=== PATIENT | female | born 1955 | race Caucasian/White ===

== ENCOUNTER 2017-07-11 13:45 | Inpatient (IN) | payer OTHER ==
[~2017-07-11] VITALS: Ht 152.4 cm; Wt 77.1 kg
[~2017-07-11 13:45] MED LIST: ALBU3IS; ALBU90OI61; ALBU90OI61 INH; ALBUIS INH; AZIT250 PO; BACL10 PO; BENZ100A PO; BUSP10 PO; CITA20 PO; CLIN150 PO; Cardizem CD 24240 MG PO; DULO30 PO; Diltiazem ER240 MG PO; FURO20 PO; GABA100 PO; GUAI600T33 PO; LEVO750; LISI20 PO; LORA1; MELO7.5 PO; METO50ER PO; MONT10T PO; POTCHL20ER PO; PRED10; PROM25 PO; RANI150 PO; Symbicort 16010.2 GM IH; TIOT18; TIOT18 INH; TRAM50 PO
[2017-07-11 14:34] LABS: BASOPHILS ABSOLUTE AUTO 0.04 K/mm3 (0.00-0.23); BASOPHILS PERCENT AUTO 0 % (0-2); EOSINOPHILS PERCENT AUTO 0 % (0-6); Hematocrit 44.3 % (33.0-51.0); Hemoglobin 14.7 g/dL (11.5-16.0); IMMATURE GRAN ABSOLUTE AUTO 0.09 K/mm3 (0.00-0.10); IMMATURE GRAN PERCENT AUTO 1 % (0-1); LYMPHOCYTES ABSOLUTE AUTO 0.72 K/mm3 (0.84-5.20); LYMPHOCYTES PERCENT AUTO 5 % (21-46); MONOCYTES PERCENT AUTO 4 % (4-13); Mean Corpuscular HGB Conc 33.2 g/dL (31.5-36.5); Mean Corpuscular Volume 106 fL (80-100); Mean Platelet Volume 11.7 fL (9.1-12.4); NEUTROPHILS ABSOLUTE AUTO 13.38 K/mm3 (1.96-9.15); NEUTROPHILS PERCENT AUTO 90 % (41-73); Platelet Count 226 K/mm3 (150-400); RDW Coefficient Variation 12.8 % (11.7-14.2); RDW Standard Deviation 50.5 fL (35.1-46.3); White Blood Cell Count 14.83 K/mm3 (4.00-11.30)
[2017-07-11 14:35] LABS: PCO2 Arterial 42 mmHg (35-45); PO2 Arterial 93 mmHg (80-100); pH Blood Arterial 7.42 (7.35-7.45)
[2017-07-11 14:57] LABS: Alanine Aminotransfer (ALT/SGP 22 U/L (12-78); Albumin, Blood 3.7 g/dL (3.4-5.0); Albumin/Globulin Ratio 0.9 (0.8-1.8); Alk Phos 113 U/L (50-136); Anion Gap 10 mmol/L (6-16); Aspartate Aminotrans (AST/SGOT 22 U/L (12-37); Bilirubin, Total 0.7 mg/dL (0.1-1.0); Blood Urea Nitrogen 13 mg/dL (8-24); CO2, Blood 28 mmol/L (21-32); Calcium, Blood 9.1 mg/dL (8.5-10.1); Chloride, Blood 95 mmol/L (98-108); Creatinine, Blood 0.86 mg/dL (0.40-1.00); Globulin, Blood 4.2 g/dL (2.2-4.0); Glomerular Filtration Rate >60 (60-); Glucose, Blood 125 mg/dL (70-99); Magnesium, Blood 1.6 mg/dL (1.6-2.4); Sodium, Blood 133 mmol/L (136-145); Total Protein, Blood 7.9 g/dL (6.4-8.2); Troponin I <0.015 ng/mL (0.000-0.040)
[2017-07-11 16:09] LABS: Influenza A Negative (NEGATIVE); Influenza B Negative (NEGATIVE)
[2017-07-11] MEDS ORDERED: ALEN70 PO (17:06)
[2017-07-11] MEDS ORDERED: BUDE6HFA INH (17:06)
[2017-07-11] MEDS ORDERED: VITAMIN D35000 UNIT PO (17:07)
[2017-07-12 04:39] LABS: Albumin, Blood 2.8 g/dL (3.4-5.0); Albumin/Globulin Ratio 0.8 (0.8-1.8); Bilirubin, Total 0.3 mg/dL (0.1-1.0); Bun/Creatinine Ratio 17.4 (12.0-20.0); Calcium, Blood 8.2 mg/dL (8.5-10.1); Creatinine, Blood 1.32 mg/dL (0.40-1.00); Globulin, Blood 3.4 g/dL (2.2-4.0); Potassium, Blood 4.1 mmol/L (3.5-5.5); Total Protein, Blood 6.2 g/dL (6.4-8.2)
[2017-07-12 18:59] LABS: PCO2 Arterial 59.3 mmHg (35-45); PO2 Arterial 66.4 mmHg (80-100); pH Blood Arterial 7.32 (7.35-7.45)
[2017-07-12 20:44] LABS: PCO2 Arterial 89 mmHg (35-45); PO2 Arterial 412 mmHg (80-100); pH Blood Arterial 7.12 (7.35-7.45)
[2017-07-12 22:21] LABS: PCO2 Arterial 69.1 mmHg (35-45); PO2 Arterial 90.2 mmHg (80-100); pH Blood Arterial 7.26 (7.35-7.45)
[2017-07-13 00:14] LABS: Source, Urine Catheter
[2017-07-13 00:27] LABS: Bilirubin, Urine Neg (Neg); Blood, Urine Neg (Neg); Glucose Qualitative, Urine Neg (Neg); Ketones, Urine Neg (Neg); Leukocyte Esterase, Urine Neg (Neg); Nitrite, Urine Neg (Neg); Protein, Urine Neg (Neg); Urobilinogen, Urine NORM (Normal)
[2017-07-13 00:34] LABS: Appearance, Urine Clear (Clear); Color, Urine Yellow (P-Yellow)
[2017-07-13 04:09] LABS: BASOPHILS PERCENT AUTO 0 % (0-2); EOSINOPHILS PERCENT AUTO 0 % (0-6); Hematocrit 31.7 % (33.0-51.0); Hemoglobin 10.7 g/dL (11.5-16.0); IMMATURE GRAN ABSOLUTE AUTO 0.01 K/mm3 (0.00-0.10); IMMATURE GRAN PERCENT AUTO 0 % (0-1); LYMPHOCYTES ABSOLUTE AUTO 0.38 K/mm3 (0.84-5.20); LYMPHOCYTES PERCENT AUTO 7 % (21-46); MONOCYTES ABSOLUTE AUTO 0.23 K/mm3 (0.16-1.47); MONOCYTES PERCENT AUTO 4 % (4-13); Mean Corpuscular HGB 35.8 pg (26.0-34.0); Mean Corpuscular HGB Conc 33.8 g/dL (31.5-36.5); Mean Corpuscular Volume 106 fL (80-100); Mean Platelet Volume 11.6 fL (9.1-12.4); NEUTROPHILS ABSOLUTE AUTO 4.96 K/mm3 (1.96-9.15); NEUTROPHILS PERCENT AUTO 89 % (41-73); Platelet Count 167 K/mm3 (150-400); RDW Coefficient Variation 12.1 % (11.7-14.2); RDW Standard Deviation 47.4 fL (35.1-46.3); Red Blood Cell Count 2.99 M/mm3 (3.80-5.20); White Blood Cell Count 5.58 K/mm3 (4.00-11.30)
[2017-07-13 04:26] LABS: Bun/Creatinine Ratio 30.2 (12.0-20.0); Calcium, Blood 7.9 mg/dL (8.5-10.1); Creatinine, Blood 1.06 mg/dL (0.40-1.00); Potassium, Blood 5.2 mmol/L (3.5-5.5)
[2017-07-13 07:31] LABS: PCO2 Arterial 55.4 mmHg (35-45); PO2 Arterial 68.9 mmHg (80-100); pH Blood Arterial 7.35 (7.35-7.45)
[2017-07-13 16:08] LABS: Hematocrit 32.9 % (33.0-51.0)
[2017-07-14 04:18] LABS: BASOPHILS PERCENT AUTO 0 % (0-2); EOSINOPHILS PERCENT AUTO 0 % (0-6); Hematocrit 33.9 % (33.0-51.0); Hemoglobin 11.2 g/dL (11.5-16.0); IMMATURE GRAN ABSOLUTE AUTO 0.01 K/mm3 (0.00-0.10); IMMATURE GRAN PERCENT AUTO 0 % (0-1); LYMPHOCYTES ABSOLUTE AUTO 0.27 K/mm3 (0.84-5.20); LYMPHOCYTES PERCENT AUTO 6 % (21-46); MONOCYTES ABSOLUTE AUTO 0.22 K/mm3 (0.16-1.47); MONOCYTES PERCENT AUTO 5 % (4-13); Mean Corpuscular HGB 34.9 pg (26.0-34.0); Mean Corpuscular Volume 106 fL (80-100); Mean Platelet Volume 11.6 fL (9.1-12.4); NEUTROPHILS ABSOLUTE AUTO 3.74 K/mm3 (1.96-9.15); NEUTROPHILS PERCENT AUTO 88 % (41-73); Platelet Count 154 K/mm3 (150-400); RDW Coefficient Variation 11.9 % (11.7-14.2); RDW Standard Deviation 46.8 fL (35.1-46.3); Red Blood Cell Count 3.21 M/mm3 (3.80-5.20); White Blood Cell Count 4.24 K/mm3 (4.00-11.30)
[2017-07-14 04:34] LABS: Anion Gap 6 mmol/L (6-16); Blood Urea Nitrogen 29 mg/dL (8-24); Bun/Creatinine Ratio 36.5 (12.0-20.0); CO2, Blood 28 mmol/L (21-32); Calcium, Blood 8.3 mg/dL (8.5-10.1); Chloride, Blood 102 mmol/L (98-108); Creatinine, Blood 0.79 mg/dL (0.40-1.00); Glomerular Filtration Rate >60 (60-); Glucose, Blood 131 mg/dL (70-99); Magnesium, Blood 2.4 mg/dL (1.6-2.4); Phosphorus, Blood 2.9 mg/dL (2.5-4.9); Potassium, Blood 4.7 mmol/L (3.5-5.5); Sodium, Blood 136 mmol/L (136-145)
[2017-07-14 04:42] LABS: PCO2 Arterial 46.6 mmHg (35-45); PO2 Arterial 94.8 mmHg (80-100); pH Blood Arterial 7.37 (7.35-7.45)
[2017-07-15 03:53] LABS: BASOPHILS PERCENT AUTO 0 % (0-2); EOSINOPHILS PERCENT AUTO 0 % (0-6); Hematocrit 36.4 % (33.0-51.0); Hemoglobin 11.9 g/dL (11.5-16.0); IMMATURE GRAN ABSOLUTE AUTO 0.08 K/mm3 (0.00-0.10); IMMATURE GRAN PERCENT AUTO 1 % (0-1); LYMPHOCYTES PERCENT AUTO 6 % (21-46); MONOCYTES ABSOLUTE AUTO 0.37 K/mm3 (0.16-1.47); MONOCYTES PERCENT AUTO 6 % (4-13); Mean Corpuscular HGB 35.6 pg (26.0-34.0); Mean Corpuscular HGB Conc 32.7 g/dL (31.5-36.5); NEUTROPHILS ABSOLUTE AUTO 5.64 K/mm3 (1.96-9.15); NEUTROPHILS PERCENT AUTO 87 % (41-73); Platelet Count 182 K/mm3 (150-400); RDW Coefficient Variation 12.2 % (11.7-14.2); RDW Standard Deviation 49.3 fL (35.1-46.3); Red Blood Cell Count 3.34 M/mm3 (3.80-5.20); White Blood Cell Count 6.49 K/mm3 (4.00-11.30)
[2017-07-15 03:54] LABS: Mean Corpuscular Volume 109 fL (80-100)
[2017-07-15 04:11] LABS: Alanine Aminotransfer (ALT/SGP 25 U/L (12-78); Albumin, Blood 3.1 g/dL (3.4-5.0); Alk Phos 60 U/L (50-136); Anion Gap 5 mmol/L (6-16); Aspartate Aminotrans (AST/SGOT 26 U/L (12-37); Bilirubin, Total 0.3 mg/dL (0.1-1.0); Blood Urea Nitrogen 36 mg/dL (8-24); Bun/Creatinine Ratio 41.1 (12.0-20.0); CO2, Blood 29 mmol/L (21-32); Calcium, Blood 8.5 mg/dL (8.5-10.1); Chloride, Blood 107 mmol/L (98-108); Creatinine, Blood 0.88 mg/dL (0.40-1.00); Globulin, Blood 3.1 g/dL (2.2-4.0); Glomerular Filtration Rate >60 (60-); Glucose, Blood 102 mg/dL (70-99); Magnesium, Blood 2.5 mg/dL (1.6-2.4); Phosphorus, Blood 3.4 mg/dL (2.5-4.9); Potassium, Blood 5.1 mmol/L (3.5-5.5); Sodium, Blood 141 mmol/L (136-145); Total Protein, Blood 6.2 g/dL (6.4-8.2)
[2017-07-15 05:19] LABS: PCO2 Arterial 65.2 mmHg (35-45); PO2 Arterial 69.3 mmHg (80-100); pH Blood Arterial 7.27 (7.35-7.45)
[2017-07-15 08:12] LABS: PCO2 Arterial 103 mmHg (35-45); PO2 Arterial 77 mmHg (80-100)
[2017-07-16 03:58] LABS: BASOPHILS ABSOLUTE AUTO 0.02 K/mm3 (0.00-0.23); BASOPHILS PERCENT AUTO 0 % (0-2); EOSINOPHILS PERCENT AUTO 0 % (0-6); Hematocrit 34.5 % (33.0-51.0); Hemoglobin 11.4 g/dL (11.5-16.0); IMMATURE GRAN ABSOLUTE AUTO 0.16 K/mm3 (0.00-0.10); IMMATURE GRAN PERCENT AUTO 2 % (0-1); LYMPHOCYTES ABSOLUTE AUTO 0.38 K/mm3 (0.84-5.20); LYMPHOCYTES PERCENT AUTO 6 % (21-46); MONOCYTES ABSOLUTE AUTO 0.53 K/mm3 (0.16-1.47); MONOCYTES PERCENT AUTO 8 % (4-13); Mean Corpuscular HGB 34.7 pg (26.0-34.0); Mean Platelet Volume 11.1 fL (9.1-12.4); NEUTROPHILS ABSOLUTE AUTO 5.48 K/mm3 (1.96-9.15); NEUTROPHILS PERCENT AUTO 83 % (41-73); Platelet Count 195 K/mm3 (150-400); RDW Coefficient Variation 12.5 % (11.7-14.2); RDW Standard Deviation 48.4 fL (35.1-46.3); Red Blood Cell Count 3.29 M/mm3 (3.80-5.20); White Blood Cell Count 6.57 K/mm3 (4.00-11.30)
[2017-07-16 04:03] LABS: Mean Corpuscular Volume 105 fL (80-100)
[2017-07-16 04:12] LABS: PCO2 Arterial 37.1 mmHg (35-45); PO2 Arterial 64.8 mmHg (80-100); pH Blood Arterial 7.52 (7.35-7.45)
[2017-07-16 04:13] LABS: Anion Gap 5 mmol/L (6-16); Blood Urea Nitrogen 34 mg/dL (8-24); Bun/Creatinine Ratio 40.4 (12.0-20.0); CO2, Blood 30 mmol/L (21-32); Calcium, Blood 8.6 mg/dL (8.5-10.1); Chloride, Blood 106 mmol/L (98-108); Creatinine, Blood 0.84 mg/dL (0.40-1.00); Glomerular Filtration Rate >60 (60-); Glucose, Blood 153 mg/dL (70-99); Sodium, Blood 141 mmol/L (136-145)
[2017-07-17 04:37] LABS: Hematocrit 36.4 % (33.0-51.0); Hemoglobin 11.9 g/dL (11.5-16.0); Mean Corpuscular HGB Conc 32.7 g/dL (31.5-36.5); Mean Corpuscular Volume 107 fL (80-100); Mean Platelet Volume 11.4 fL (9.1-12.4); Platelet Count 198 K/mm3 (150-400); RDW Coefficient Variation 12.7 % (11.7-14.2); White Blood Cell Count 10.38 K/mm3 (4.00-11.30)
[2017-07-17 04:53] LABS: Anion Gap 4 mmol/L (6-16); Blood Urea Nitrogen 31 mg/dL (8-24); Bun/Creatinine Ratio 40.9 (12.0-20.0); CO2, Blood 30 mmol/L (21-32); Calcium, Blood 8.6 mg/dL (8.5-10.1); Chloride, Blood 107 mmol/L (98-108); Creatinine, Blood 0.76 mg/dL (0.40-1.00); Glomerular Filtration Rate >60 (60-); Glucose, Blood 162 mg/dL (70-99); Potassium, Blood 4.6 mmol/L (3.5-5.5); Sodium, Blood 141 mmol/L (136-145)
[2017-07-18 03:46] LABS: Hematocrit 34.4 % (33.0-51.0); Hemoglobin 11.3 g/dL (11.5-16.0); Mean Corpuscular HGB 35.1 pg (26.0-34.0); Mean Corpuscular HGB Conc 32.8 g/dL (31.5-36.5); Mean Corpuscular Volume 107 fL (80-100); Mean Platelet Volume 12.5 fL (9.1-12.4); NRBC ABSOLUTE 0.03 K/mm3 (0.00-0.02); NRBC Auto 0.3 /100 WBC (0.0-0.2); Platelet Count 163 K/mm3 (150-400); RDW Coefficient Variation 13.6 % (11.7-14.2); RDW Standard Deviation 51.1 fL (35.1-46.3); Red Blood Cell Count 3.22 M/mm3 (3.80-5.20); White Blood Cell Count 9.95 K/mm3 (4.00-11.30)
[2017-07-18 04:51] LABS: Anion Gap 6 mmol/L (6-16); Blood Urea Nitrogen 27 mg/dL (8-24); Bun/Creatinine Ratio 44.2 (12.0-20.0); CO2, Blood 30 mmol/L (21-32); Calcium, Blood 8.3 mg/dL (8.5-10.1); Chloride, Blood 105 mmol/L (98-108); Creatinine, Blood 0.61 mg/dL (0.40-1.00); Glomerular Filtration Rate >60 (60-); Glucose, Blood 165 mg/dL (70-99); Potassium, Blood 4.5 mmol/L (3.5-5.5); Sodium, Blood 141 mmol/L (136-145)
[2017-07-18 05:03] LABS: BAND PERCENT MAN 1 % (0-8); BASOPHILS PERCENT MAN 0 % (0-2); EOSINOPHILS PERCENT MAN 0 % (0-6); LYMPHOCYTES ABSOLUTE MAN 0.39 K/mm3 (0.84-5.20); LYMPHOCYTES PERCENT MAN 4 % (21-46); METAMYELOCYTE ABSOLUTE MAN 0.19 K/mm3 (0.00-0.00); METAMYELOCYTE PERCENT MAN 2 % (0-0); MONOCYTES ABSOLUTE MAN 0.49 K/mm3 (0.16-1.47); MONOCYTES PERCENT MAN 5 % (4-13); MYELOCYTE ABSOLUTE MAN 0.09 K/mm3 (0.00-0.00); MYELOCYTE PERCENT MAN 1 % (0-0); NEUTROPHILS ABSOLUTE MAN 8.75 K/mm3 (1.96-9.15); SEG NEUTROPHILS PERCENT MAN 87 % (41-73); TOTAL CELLS COUNTED 100
[2017-07-18 05:41] LABS: PCO2 Arterial 46.9 mmHg (35-45); PO2 Arterial 50.3 mmHg (80-100); pH Blood Arterial 7.44 (7.35-7.45)
[2017-07-19 04:56] LABS: BASOPHILS ABSOLUTE AUTO 0.02 K/mm3 (0.00-0.23); BASOPHILS PERCENT AUTO 0 % (0-2); EOSINOPHILS PERCENT AUTO 0 % (0-6); Hematocrit 36.1 % (33.0-51.0); Hemoglobin 12.1 g/dL (11.5-16.0); IMMATURE GRAN ABSOLUTE AUTO 0.75 K/mm3 (0.00-0.10); IMMATURE GRAN PERCENT AUTO 7 % (0-1); LYMPHOCYTES ABSOLUTE AUTO 0.65 K/mm3 (0.84-5.20); LYMPHOCYTES PERCENT AUTO 6 % (21-46); MONOCYTES ABSOLUTE AUTO 0.75 K/mm3 (0.16-1.47); MONOCYTES PERCENT AUTO 7 % (4-13); Mean Corpuscular HGB 34.9 pg (26.0-34.0); Mean Corpuscular HGB Conc 33.5 g/dL (31.5-36.5); Mean Platelet Volume 11.4 fL (9.1-12.4); NEUTROPHILS ABSOLUTE AUTO 8.99 K/mm3 (1.96-9.15); NEUTROPHILS PERCENT AUTO 81 % (41-73); Platelet Count 152 K/mm3 (150-400); RDW Coefficient Variation 12.6 % (11.7-14.2); RDW Standard Deviation 48.3 fL (35.1-46.3); Red Blood Cell Count 3.47 M/mm3 (3.80-5.20); White Blood Cell Count 11.16 K/mm3 (4.00-11.30)
[2017-07-19 04:57] LABS: Mean Corpuscular Volume 104 fL (80-100)
[2017-07-19 05:12] LABS: Anion Gap 7 mmol/L (6-16); BAND PERCENT MAN 1 % (0-8); BASOPHILS PERCENT MAN 0 % (0-2); Blood Urea Nitrogen 24 mg/dL (8-24); Bun/Creatinine Ratio 40.2 (12.0-20.0); CO2, Blood 30 mmol/L (21-32); Calcium, Blood 7.9 mg/dL (8.5-10.1); Chloride, Blood 102 mmol/L (98-108); EOSINOPHILS PERCENT MAN 0 % (0-6); Glomerular Filtration Rate >60 (60-); Glucose, Blood 162 mg/dL (70-99); LYMPHOCYTES ABSOLUTE MAN 0.78 K/mm3 (0.84-5.20); LYMPHOCYTES PERCENT MAN 7 % (21-46); METAMYELOCYTE ABSOLUTE MAN 0.44 K/mm3 (0.00-0.00); METAMYELOCYTE PERCENT MAN 4 % (0-0); MONOCYTES ABSOLUTE MAN 0.66 K/mm3 (0.16-1.47); MONOCYTES PERCENT MAN 6 % (4-13); MYELOCYTE ABSOLUTE MAN 0.11 K/mm3 (0.00-0.00); MYELOCYTE PERCENT MAN 1 % (0-0); NEUTROPHILS ABSOLUTE MAN 9.15 K/mm3 (1.96-9.15); Potassium, Blood 4.2 mmol/L (3.5-5.5); SEG NEUTROPHILS PERCENT MAN 81 % (41-73); Sodium, Blood 139 mmol/L (136-145); TOTAL CELLS COUNTED 100
[2017-07-19 05:38] LABS: PCO2 Arterial 43.9 mmHg (35-45); PO2 Arterial 59.3 mmHg (80-100)
[2017-07-20 04:34] LABS: BASOPHILS ABSOLUTE AUTO 0.02 K/mm3 (0.00-0.23); BASOPHILS PERCENT AUTO 0 % (0-2); EOSINOPHILS PERCENT AUTO 0 % (0-6); Hematocrit 33.5 % (33.0-51.0); Hemoglobin 11.3 g/dL (11.5-16.0); IMMATURE GRAN ABSOLUTE AUTO 0.28 K/mm3 (0.00-0.10); IMMATURE GRAN PERCENT AUTO 3 % (0-1); LYMPHOCYTES ABSOLUTE AUTO 0.77 K/mm3 (0.84-5.20); LYMPHOCYTES PERCENT AUTO 7 % (21-46); MONOCYTES ABSOLUTE AUTO 0.61 K/mm3 (0.16-1.47); MONOCYTES PERCENT AUTO 6 % (4-13); Mean Corpuscular HGB 35.1 pg (26.0-34.0); Mean Corpuscular HGB Conc 33.7 g/dL (31.5-36.5); Mean Corpuscular Volume 104 fL (80-100); Mean Platelet Volume 11.7 fL (9.1-12.4); NEUTROPHILS ABSOLUTE AUTO 9.51 K/mm3 (1.96-9.15); NEUTROPHILS PERCENT AUTO 85 % (41-73); Platelet Count 149 K/mm3 (150-400); RDW Coefficient Variation 12.4 % (11.7-14.2); RDW Standard Deviation 47.7 fL (35.1-46.3); Red Blood Cell Count 3.22 M/mm3 (3.80-5.20); White Blood Cell Count 11.19 K/mm3 (4.00-11.30)
[2017-07-20 04:50] LABS: Anion Gap 3 mmol/L (6-16); Blood Urea Nitrogen 20 mg/dL (8-24); Bun/Creatinine Ratio 30.8 (12.0-20.0); CO2, Blood 37 mmol/L (21-32); Chloride, Blood 99 mmol/L (98-108); Creatinine, Blood 0.65 mg/dL (0.40-1.00); Glomerular Filtration Rate >60 (60-); Glucose, Blood 109 mg/dL (70-99); Magnesium, Blood 2.6 mg/dL (1.6-2.4); Phosphorus, Blood 3.7 mg/dL (2.5-4.9); Potassium, Blood 4.6 mmol/L (3.5-5.5); Sodium, Blood 139 mmol/L (136-145)
[2017-07-20 05:27] LABS: PO2 Arterial 117 mmHg (80-100); pH Blood Arterial 7.46 (7.35-7.45)
[2017-07-21 03:24] LABS: PCO2 Arterial 53.4 mmHg (35-45); PO2 Arterial 82.9 mmHg (80-100); pH Blood Arterial 7.46 (7.35-7.45)
[2017-07-21 04:10] LABS: BASOPHILS ABSOLUTE AUTO 0.02 K/mm3 (0.00-0.23); BASOPHILS PERCENT AUTO 0 % (0-2); EOSINOPHILS PERCENT AUTO 0 % (0-6); Hematocrit 35.6 % (33.0-51.0); Hemoglobin 11.7 g/dL (11.5-16.0); IMMATURE GRAN PERCENT AUTO 1 % (0-1); LYMPHOCYTES ABSOLUTE AUTO 0.91 K/mm3 (0.84-5.20); LYMPHOCYTES PERCENT AUTO 6 % (21-46); MONOCYTES ABSOLUTE AUTO 0.66 K/mm3 (0.16-1.47); MONOCYTES PERCENT AUTO 5 % (4-13); Mean Corpuscular HGB 34.2 pg (26.0-34.0); Mean Corpuscular HGB Conc 32.9 g/dL (31.5-36.5); Mean Corpuscular Volume 104 fL (80-100); Mean Platelet Volume 11.9 fL (9.1-12.4); NEUTROPHILS ABSOLUTE AUTO 12.85 K/mm3 (1.96-9.15); NEUTROPHILS PERCENT AUTO 88 % (41-73); Platelet Count 161 K/mm3 (150-400); RDW Coefficient Variation 12.3 % (11.7-14.2); RDW Standard Deviation 46.5 fL (35.1-46.3); Red Blood Cell Count 3.42 M/mm3 (3.80-5.20); White Blood Cell Count 14.64 K/mm3 (4.00-11.30)
[2017-07-21 04:29] LABS: Anion Gap 6 mmol/L (6-16); Blood Urea Nitrogen 20 mg/dL (8-24); Bun/Creatinine Ratio 30.9 (12.0-20.0); CO2, Blood 37 mmol/L (21-32); Calcium, Blood 8.2 mg/dL (8.5-10.1); Chloride, Blood 96 mmol/L (98-108); Creatinine, Blood 0.65 mg/dL (0.40-1.00); Glomerular Filtration Rate >60 (60-); Glucose, Blood 112 mg/dL (70-99); Potassium, Blood 3.8 mmol/L (3.5-5.5); Sodium, Blood 139 mmol/L (136-145)
[2017-07-22 04:00] LABS: Hematocrit 35.1 % (33.0-51.0); Mean Corpuscular HGB 35.5 pg (26.0-34.0); Mean Corpuscular HGB Conc 34.2 g/dL (31.5-36.5); Mean Corpuscular Volume 104 fL (80-100); Mean Platelet Volume 11.8 fL (9.1-12.4); Platelet Count 180 K/mm3 (150-400); RDW Coefficient Variation 12.4 % (11.7-14.2); RDW Standard Deviation 47.2 fL (35.1-46.3); Red Blood Cell Count 3.38 M/mm3 (3.80-5.20); White Blood Cell Count 16.77 K/mm3 (4.00-11.30)
[2017-07-22 04:16] LABS: Anion Gap 4 mmol/L (6-16); Blood Urea Nitrogen 20 mg/dL (8-24); Bun/Creatinine Ratio 28.1 (12.0-20.0); CO2, Blood 35 mmol/L (21-32); Calcium, Blood 8.5 mg/dL (8.5-10.1); Chloride, Blood 98 mmol/L (98-108); Creatinine, Blood 0.71 mg/dL (0.40-1.00); Glomerular Filtration Rate >60 (60-); Glucose, Blood 119 mg/dL (70-99); Potassium, Blood 4.7 mmol/L (3.5-5.5); Sodium, Blood 137 mmol/L (136-145)
[2017-07-23] MEDS ORDERED: DULO60 PO (12:52)
[2017-07-23] MEDS ORDERED: ERGO400 PO (12:53)
[2017-07-23] MEDS ORDERED: CIPR500 PO (12:55)
[2017-07-23] MEDS ORDERED: DOCU100 PO (12:55)
[2017-07-23] MEDS ORDERED: ALBU3IS INH (12:56)
[2017-07-23] MEDS ORDERED: ALBU2.5V5 NEB (12:57)
[2017-07-23] MEDS ORDERED: PRED10 PO (12:57)
[2017-07-23] MEDS ORDERED: AZIT500 PO (12:58)
== END 2017-07-23 14:15 | disposition home health service (06) | DRG 871 ==
LOC: ER 13:45 → ICUE 13:46 → PCU 13:46 → ICUE 17:15 → PCU 17:23 → ICUE 07-12 19:23 → PCU 07-20 19:03 → MEDS 07-22 17:26 → ENPENDDIS 07-23 10:42 → MEDS 07-23 14:15
PROVIDERS: Emergency Medicine; Internal Medicine; Internal Medicine Critical Care Medicine; Internal Medicine Pulmonary Disease
PROC: 5A09457 Assistance with Respiratory Ventilation, 24-96 Consecutive Hours, Continuous Positive Airway Pressure (ICD-10-PCS; 2017-07-11)
PROC: 0BH17EZ Insertion of Endotracheal Airway into Trachea, Via Natural or Artificial Opening (ICD-10-PCS; principal; 2017-07-15)
PROC: 5A1945Z Respiratory Ventilation, 24-96 Consecutive Hours (ICD-10-PCS; 2017-07-15)
DX: A41.81 Sepsis due to Enterococcus (principal); J96.21 Acute and chronic respiratory failure with hypoxia; J96.22 Acute and chronic respiratory failure with hypercapnia; G93.41 Metabolic encephalopathy; J15.6 Pneumonia due to other Gram-negative bacteria; J15.8 Pneumonia due to other specified bacteria; N17.9 Acute kidney failure, unspecified; E87.1 Hypo-osmolality and hyponatremia; J44.0 Chronic obstructive pulmonary disease with (acute) lower respiratory infection; J44.1 Chronic obstructive pulmonary disease with (acute) exacerbation; R53.81 Other malaise; F41.8 Other specified anxiety disorders; I10 Essential (primary) hypertension; M54.9 Dorsalgia, unspecified; G62.9 Polyneuropathy, unspecified; R65.20 Severe sepsis without septic shock; F17.210 Nicotine dependence, cigarettes, uncomplicated; B37.9 Candidiasis, unspecified; T50.905A Adverse effect of unspecified drugs, medicaments and biological substances, initial encounter
CPT/HCPCS: 31500; 31720; 36415; 36600; 51702; 71045; 80048; 80053; 81003; 82550; 82803; 83605; 83735; 83880; 84100; 84145; 84484; 85014; 85018; 85025; 85027; 87040; 87070; 87077; 87186; 87205; 87804; 93005; 93010; 94002; 94003; 94640; 94644; 94660; 94760; 94762; 96365; 96366; 96375; 97110; 97116; 97162; 97166; 97530; 97535; 99285; C1751; C9113; G8978; G8979; G8987; G8988; J0330; J0360; J0456; J0696; J1650; J2060; J2405; J2930; J3010; J7030; J7050; J7120

== ENCOUNTER 2019-05-22 03:57 | Inpatient (IN) | payer OTHER ==
[~2019-05-22] VITALS: Ht 154.9 cm; Wt 67.1 kg
[~2019-05-22 03:57] MED LIST changes: +ALBU2.5V5 NEB; +ALBU3IS INH; +ALEN70 PO; +AZIT500 PO; +Albuterol2.5 MG/0.5 INH; +BUDE6HFA INH; +BUDESONIDE-FO10.2 G1 INH; +Budesonide0.5 MG/2 M INH; +CIPR500 PO; +DOCU100 PO; +DULO60 PO; +Duoneb 2.5-0.5 M3 ML INH; +Duoneb 2.5-0.5 M3 ML NEB; +ERGO400 PO; +FLUTICASONE-SA1 EAC4 INH; +METO100ER PO; +Micro-K10 MEQ PO; +OMEPRAZOLE MAGN20 MG PO; +PRED10 PO; +PROAIR DIGIHAL90 MCG; +Prednisone10 MG PO; +QUET300 PO; +ROBITUSSIN COU237 ML PO; +THERA-D2000 UNIT PO; +VITAMIN D35000 UNIT PO
[2019-05-22 04:25] LABS: BASOPHILS ABSOLUTE AUTO 0.04 K/mm3 (0.00-0.23); BASOPHILS PERCENT AUTO 0 % (0-2); EOSINOPHILS ABSOLUTE AUTO 0.01 K/mm3 (0.00-0.68); EOSINOPHILS PERCENT AUTO 0 % (0-6); Hematocrit 35.2 % (33.0-51.0); Hemoglobin 12.1 g/dL (11.5-16.0); IMMATURE GRAN ABSOLUTE AUTO 0.13 K/mm3 (0.00-0.10); IMMATURE GRAN PERCENT AUTO 1 % (0-1); LYMPHOCYTES PERCENT AUTO 5 % (21-46); MONOCYTES ABSOLUTE AUTO 1.16 K/mm3 (0.16-1.47); MONOCYTES PERCENT AUTO 7 % (4-13); Mean Corpuscular HGB 35.6 pg (26.0-34.0); Mean Corpuscular HGB Conc 34.4 g/dL (31.5-36.5); Mean Corpuscular Volume 104 fL (80-100); Mean Platelet Volume 11.1 fL (9.1-12.4); NEUTROPHILS ABSOLUTE AUTO 15.19 K/mm3 (1.96-9.15); NEUTROPHILS PERCENT AUTO 88 % (41-73); Platelet Count 312 K/mm3 (150-400); RDW Standard Deviation 49.6 fL (35.1-46.3); White Blood Cell Count 17.33 K/mm3 (4.00-11.30)
[2019-05-22 04:26] LABS: PCO2 Arterial 33.2 mmHg (35-45); PO2 Arterial 50.9 mmHg (80-100); pH Blood Arterial 7.51 (7.35-7.45)
[2019-05-22 04:45] LABS: Alanine Aminotransfer (ALT/SGP 14 U/L (12-78); Albumin, Blood 2.4 g/dL (3.4-5.0); Albumin/Globulin Ratio 0.6 (0.8-1.8); Alk Phos 134 U/L (50-136); Anion Gap 9 mmol/L (6-16); Aspartate Aminotrans (AST/SGOT 25 U/L (12-37); Blood Urea Nitrogen 13 mg/dL (8-24); CO2, Blood 25 mmol/L (21-32); Calcium, Blood 8.7 mg/dL (8.5-10.1); Chloride, Blood 100 mmol/L (98-108); Creatinine, Blood 0.76 mg/dL (0.40-1.00); Globulin, Blood 4.3 g/dL (2.2-4.0); Glomerular Filtration Rate >60 (60-); Glucose, Blood 104 mg/dL (70-99); Potassium, Blood 4.6 mmol/L (3.5-5.5); Sodium, Blood 134 mmol/L (136-145); Total Protein, Blood 6.7 g/dL (6.4-8.2); Troponin I <0.015 ng/mL (0.000-0.040)
[2019-05-22 07:51] LABS: Adenovirus Not Detected (NOT DETECT); Bordetella pertussis Not Detected (NOT DETECT); Chlamydophila pneumoniae Not Detected (NOT DETECT); Coronavirus 229E Not Detected (NOT DETECT); Coronavirus HKU1 Detected (NOT DETECT); Coronavirus NL63 Not Detected (NOT DETECT); Coronavirus OC43 Not Detected (NOT DETECT); Human Metapneumovirus Not Detected (NOT DETECT); Human Rhinovirus/Enterovirus Not Detected (NOT DETECT); Influenza A/2009-H1 Not Detected (NOT DETECT); Influenza A/H1 Not Detected (NOT DETECT); Influenza A/H3 Not Detected (NOT DETECT); Influenza B Not Detected (NOT DETECT); Mycoplasma pneumoniae Not Detected (NOT DETECT); Parainfluenza Virus 1 Not Detected (NOT DETECT); Parainfluenza Virus 2 Not Detected (NOT DETECT); Parainfluenza Virus 3 Not Detected (NOT DETECT); Parainfluenza Virus 4 Not Detected (NOT DETECT); Respiratory Syncytial Virus Not Detected (NOT DETECT)
[2019-05-22 10:56] LABS: Test Name COVID 19
[2019-05-22] MEDS ORDERED: FLUTICASONE-SA1 EAC4 INH (11:42)
[2019-05-22] MEDS ORDERED: MONT10T PO (11:43)
--- NOTE | 2019-05-22 15:40 | NUR ---
ASSUMED PATIENT CARE. PATIENT RESTING COMFORTABLY IN BED, NO SIGNS OF ACUTE RESPIRATORY DISTRESS. EQUAL BILATERAL CHEST RISE WTIH BREATH, WCTM.
--- NOTE | 2019-05-22 18:24 | NUR ---
PATIENT ARRIVED FROM ED THIS AFTERNOON. NO ACUTE EVENTS THIS HALF OF SHIFT. PATIENT ON 3 L NASAL CANNULA WITH O2 SATS IN THE UPPER 90S. RESPIRATORY PANEL WAS COLLECTED TODAY. PROCALCITONIN WAS ELEVATED THIS SHIFT. IV ABX ORDERED TO TREAT FOR SUSPECTED PNA. PATIENT RECEIVED DUONEB TREATMENTS FROM RT THIS SHIFT. CURRENTLY RECIEVING IV FLUIDS.
[2019-05-23 05:31] LABS: U Amphetamine Screen Not Detected
[2019-05-23 05:32] LABS: U Barbituate Screen Not Detected; U Benzodiazapine Screen Not Detected; U Buprenorphine Screen Not Detected; U Cannabinoids Screen Not Detected; U Cocaine Screen Not Detected; U Methadone Screen Not Detected; U Methamphetamine Screen Not Detected; U Opiates Screen Not Detected; U Oxycodone Screen Not Detected; U Phencyclidine Screen Not Detected; U Propoxyphene Screen Not Detected
[2019-05-23 05:33] LABS: BASOPHILS ABSOLUTE AUTO 0.01 K/mm3 (0.00-0.23); BASOPHILS PERCENT AUTO 0 % (0-2); EOSINOPHILS PERCENT AUTO 0 % (0-6); Hematocrit 25.2 % (33.0-51.0); Hemoglobin 8.5 g/dL (11.5-16.0); IMMATURE GRAN ABSOLUTE AUTO 0.05 K/mm3 (0.00-0.10); IMMATURE GRAN PERCENT AUTO 1 % (0-1); LYMPHOCYTES ABSOLUTE AUTO 0.63 K/mm3 (0.84-5.20); LYMPHOCYTES PERCENT AUTO 7 % (21-46); MONOCYTES ABSOLUTE AUTO 0.48 K/mm3 (0.16-1.47); MONOCYTES PERCENT AUTO 6 % (4-13); Mean Corpuscular HGB 35.9 pg (26.0-34.0); Mean Corpuscular HGB Conc 33.7 g/dL (31.5-36.5); Mean Corpuscular Volume 106 fL (80-100); Mean Platelet Volume 11.2 fL (9.1-12.4); NEUTROPHILS ABSOLUTE AUTO 7.48 K/mm3 (1.96-9.15); NEUTROPHILS PERCENT AUTO 87 % (41-73); Platelet Count 247 K/mm3 (150-400); RDW Coefficient Variation 12.9 % (11.7-14.2); RDW Standard Deviation 50.3 fL (35.1-46.3); Red Blood Cell Count 2.37 M/mm3 (3.80-5.20); White Blood Cell Count 8.65 K/mm3 (4.00-11.30)
--- NOTE | 2019-05-23 05:41 | NUR ---
SHIFT SUMMARY: PATIENT ALERT AND ACTIVE THIS SHIFT, C/O DIFFICULTY BREATHING X2 THIS SHIFT; O2 >90%, BREATHING TREATMENT REQUESTED. PATIENT C/O NO URINATION ALL DAY, BLADDER SCAN REVEALED ONLY APPROX 158ML IN BLADDER, AT END OF SHIFT PATIENT WAS ABLE TO URINATE >400ML. NO OTHER ISSUES NOTED, MONITORING PATIENT CLOSELY
[2019-05-23 05:55] LABS: Alanine Aminotransfer (ALT/SGP 14 U/L (12-78); Albumin/Globulin Ratio 0.6 (0.8-1.8); Alk Phos 100 U/L (50-136); Anion Gap 6 mmol/L (6-16); Aspartate Aminotrans (AST/SGOT 13 U/L (12-37); Bilirubin, Total 0.2 mg/dL (0.1-1.0); Blood Urea Nitrogen 20 mg/dL (8-24); Bun/Creatinine Ratio 25.6 (12.0-20.0); CO2, Blood 24 mmol/L (21-32); Calcium, Blood 7.9 mg/dL (8.5-10.1); Chloride, Blood 106 mmol/L (98-108); Creatinine, Blood 0.78 mg/dL (0.40-1.00); Globulin, Blood 3.6 g/dL (2.2-4.0); Glomerular Filtration Rate >60 (60-); Glucose, Blood 117 mg/dL (70-99); Sodium, Blood 136 mmol/L (136-145); Total Protein, Blood 5.6 g/dL (6.4-8.2)
--- NOTE | 2019-05-23 07:15 | NUR ---
ASSUMED PATIENT CARE. PATIENT RESTING COMFORTABLY IN BED, NO SIGNS OF ACUTE DISTRESS. WCTM.
--- NOTE | 2019-05-23 10:24 | NUR ---
HELPED PATIENT TO BEDSIDE COMODE AND BACK TO BED. INCREASED WORK OF BREATHING NOTED. PATIENT COMPLAINS OF CHEST PRESSURE "LIKE SOMEONE IS SITTING ON MY CHEST." O2 SATURATION IN MID-90S. NOTIFIED CHARGE NURSE. OLGA.
--- NOTE | 2019-05-23 10:58 | NUR ---
Spiritual care visit conducted. Patient is lying in bed and alert. Patient tells me about her medical issues, her family and her niurka. She states that her family is very supportive but most live out of town. Patient tells me that her prayers are what get her through the challenges of life and gives her a sense of peace even in light of her current health conditions. I listen empathically, normalize patient's experience, reinforce helpful attitudes and practices and provide companionship and prayer. Patient responds well. I will continues to remain available to patient and family.
--- NOTE | 2019-05-23 11:00 | NUR ---
DR. STOKES NOTIFIED OF PATIENT'S CHEST PAIN/PRESSURE. EKG DONE, DR. STOKES EXAMINED AND ORDERED GI COCKTAIL AND NITRO.
--- NOTE | 2019-05-23 12:54 | NUR ---
AFTER ADMIN OF GI COCKTAIL PATIENT'S CHEST PRESSURE AND PAIN HAS GONE FROM 9/10 PAIN TO 8/10 PAIN. HOWEVER PAIN HAS SPREAD FROM UPPER GI, TO MID-CHEST, AND TO BACK. NITRO GIVEN. WCTM.
--- NOTE | 2019-05-23 13:06 | NUR ---
1 NITRO ADMININSTERED, PATIENT ENDORSES RELIEF OF CHEST PRESSURE AND PAIN DECREASED FROM 8/10 TO 6/10.
--- NOTE | 2019-05-23 15:53 | NUR ---
Echocardiogram completed.
--- NOTE | 2019-05-23 18:56 | NUR ---
PATIENT MAINTAINED O2 IN THE MID-90S WITH 1.5-2.5 L NASAL CANNULA THIS SHIFT. MIDDAY PATIENT BEGAN TO COMPLAIN OF CHEST PAIN 9/10 AND CHEST PRESSURE, AND NAUSEA. DR. STOKES NOTIFIED, EKG CONDUCTED, GI COCKTAIL AND NITROGYLCERIN ORDERED AND GIVEN. PATIENT X1 NITRO ADMINISTERED, PATIENT ENDORSES RELIEF OF CHEST PRESSURE AND DECREASE IN PAIN FROM 9/10 TO 6/10. PATIENT COMPLAINED A SECOND TIME IN AFTERNOON OF CHEST PAIN/PRESSURE, AGAIN ENDORSED RELIEF. BOTH TIMES PATIENT COMPLAINED OF HEADACHE AFTER NITRO, TYLENOL WAS EFFECTIVE.
--- NOTE | 2019-05-23 19:11 | NUR ---
RELINQUISHED PATIENT CARE.
--- NOTE | 2019-05-24 04:00 | NUR ---
SHIFT SMMARY: PATIENT STATES SHE STILL CHEST PAIN BUT VERY LITTLE COMPARED TO DAYSHIFT, STATES IT IS WORSE WITH BREATHING. VSS, PATIENT BETTING UP TO BSC WITH SBA, NO OTHER ISSUES NOTED. CALL LIGHT WITHIN REACH, BED LOW AND LOCKED
--- NOTE | 2019-05-24 07:25 | NUR ---
ASSUMED PATIENT CARE. PATIENT RESTING COMFORTABLY IN BED, NO SIGNS OF ACUTE DISTRESS. WCTM.
--- NOTE | 2019-05-24 15:14 | NUR ---
Spiritual care visit conducted. Patient immediately tells me that she is relieved that she is negative for covid-19. Patient talks about her personal struggles and about her family unit complications. Patient has fears about what is happening with her health and although she is thankful for what is ruled out she is concerned about what she doesn't know. I listen empathically and provide anxiety containment, pastoral certified lactation counselor and prayer. Patient responds well and shows signs of reduced stress. I will continue to remain available to patient and family.
--- NOTE | 2019-05-24 19:40 | NUR ---
RELINQUISHED PATIENT CARE.
--- NOTE | 2019-05-24 19:54 | NUR ---
NO ACUTE EVENTS THIS SHIFT. PATIENT REMAINED PLEASANT BUT FORGETFUL AT TIMES. PATIENT MAINTAINED O2 SATS OF MID TO UPPER 90S ON 0-3 L NASAL CANNULA. PATIENT REMAINED IN SINUS TACH THROUGH THIS SHIFT. PATIENT WAS ABLE TO USE BEDSIDE COMODE WITH STANDBY ASSIST, PATIENT EXHIBITED INCREASED WORK OF BREATHING AND WEAKNESS EACH TIME AFTER GETTING BACK TO BED. PLAN IS FOR PATIENT TO CONTINUE TO RECEIVE DUONEB TREATMENTS, SOLUMEDROL, AND IV ABX.
[2019-05-25 03:44] LABS: BASOPHILS ABSOLUTE AUTO 0.01 K/mm3 (0.00-0.23); BASOPHILS PERCENT AUTO 0 % (0-2); EOSINOPHILS PERCENT AUTO 0 % (0-6); Hematocrit 23.6 % (33.0-51.0); Hemoglobin 7.7 g/dL (11.5-16.0); IMMATURE GRAN ABSOLUTE AUTO 0.11 K/mm3 (0.00-0.10); IMMATURE GRAN PERCENT AUTO 2 % (0-1); LYMPHOCYTES ABSOLUTE AUTO 0.54 K/mm3 (0.84-5.20); LYMPHOCYTES PERCENT AUTO 9 % (21-46); MONOCYTES ABSOLUTE AUTO 0.27 K/mm3 (0.16-1.47); MONOCYTES PERCENT AUTO 4 % (4-13); Mean Corpuscular HGB 34.5 pg (26.0-34.0); Mean Corpuscular HGB Conc 32.6 g/dL (31.5-36.5); Mean Corpuscular Volume 106 fL (80-100); Mean Platelet Volume 10.6 fL (9.1-12.4); NEUTROPHILS PERCENT AUTO 85 % (41-73); Platelet Count 279 K/mm3 (150-400); RDW Coefficient Variation 12.6 % (11.7-14.2); RDW Standard Deviation 48.8 fL (35.1-46.3); Red Blood Cell Count 2.23 M/mm3 (3.80-5.20); White Blood Cell Count 6.33 K/mm3 (4.00-11.30)
[2019-05-25 04:01] LABS: Anion Gap 5 mmol/L (6-16); Blood Urea Nitrogen 23 mg/dL (8-24); Bun/Creatinine Ratio 25.8 (12.0-20.0); CO2, Blood 25 mmol/L (21-32); Calcium, Blood 8.5 mg/dL (8.5-10.1); Chloride, Blood 103 mmol/L (98-108); Creatinine, Blood 0.89 mg/dL (0.40-1.00); Glomerular Filtration Rate >60 (60-); Glucose, Blood 124 mg/dL (70-99); Potassium, Blood 4.7 mmol/L (3.5-5.5); Sodium, Blood 133 mmol/L (136-145)
--- NOTE | 2019-05-25 06:19 | NUR ---
SHIFT SUMMARY PT ALERT AND ORIENTED TO SELF; O2 SATS >93 ON 2L NC; VSS; DENIES CHEST PAIN; PT SLEPT WELL IN BETWEEN INTERVENTIONS; SBA TO BSC; VOIDING APPROPRIATELY; TYLENOL FOR PAIN 1X THIS SHIFT; DENIES NEEDS AT THIS TIME; CALL LIGHT IN REACH; BED IN LOWEST POSITION; WILL CONTINUE TO MONITOR CLOSELY UNTIL HAND OFF TO DAY SHIFT RN.
--- NOTE | 2019-05-25 07:22 | NUR ---
ASSUMED PATIENT CARE. PATIENT SLEEPING COMFORTABLY IN BED, NO SIGNS OF ACUTE DISTRESS. WCTM.
[2019-05-25 08:06] LABS: Percent Saturation 65.2 % (15.0-50.0)
--- NOTE | 2019-05-25 15:34 | NUR ---
Spiritual care visit conducted. Because therapeutic alliance is already established patient tells me about her struggles with depression and anxiety. We talk about healthy ways to manage it along with my encouragement to stay on her perscribed medications even when she has good days. We also create a list of healthy activities that refuel and inspire her. I listen empathically and provide pastoral licensed professional counselor and prayer. Patient responds well and verbalizes gratitude for the visit and asks if I can come back tomorrow. I will continue to remain available to patient and family.
--- NOTE | 2019-05-25 18:40 | NUR ---
PATIENT'S H&H SHOWED DOWNWARD TREND, 1 UNIT PACKED RED BLOOD CELLS TRANFUSED THIS MORNING. PATIENT HAD ELEVATED BNP LEVEL TODAY, LASIX STARTED THIS SHIFT. PATIENT HAD NEW IV PLACED, OLD IV DC'D THIS SHIFT. PATIENT COMPLAINS OF STRONG PAIN AT TIMES WHEN AWARE OF IV MEDS BEING PUSHED, AT OTHER TIMES DOES NOT NOTICE. NO BOWEL MOVEMENT THIS SHIFT, GUAIAC NOT YET COLLECTED. REMAINED IN SINUS TACH THIS SHIFT.
[2019-05-25 20:55] LABS: Stool Occult Blood Guaiac 1 Neg (Neg)
[2019-05-26 04:00] LABS: BASOPHILS ABSOLUTE AUTO 0.03 K/mm3 (0.00-0.23); BASOPHILS PERCENT AUTO 0 % (0-2); EOSINOPHILS PERCENT AUTO 0 % (0-6); Hematocrit 28.3 % (33.0-51.0); Hemoglobin 9.3 g/dL (11.5-16.0); IMMATURE GRAN ABSOLUTE AUTO 0.35 K/mm3 (0.00-0.10); IMMATURE GRAN PERCENT AUTO 4 % (0-1); LYMPHOCYTES ABSOLUTE AUTO 0.81 K/mm3 (0.84-5.20); LYMPHOCYTES PERCENT AUTO 9 % (21-46); MONOCYTES ABSOLUTE AUTO 0.57 K/mm3 (0.16-1.47); MONOCYTES PERCENT AUTO 6 % (4-13); Mean Corpuscular HGB Conc 32.9 g/dL (31.5-36.5); Mean Platelet Volume 10.7 fL (9.1-12.4); NEUTROPHILS ABSOLUTE AUTO 7.14 K/mm3 (1.96-9.15); NEUTROPHILS PERCENT AUTO 80 % (41-73); Platelet Count 296 K/mm3 (150-400); RDW Coefficient Variation 19.9 % (11.7-14.2); RDW Standard Deviation 70.2 fL (35.1-46.3); Red Blood Cell Count 2.91 M/mm3 (3.80-5.20)
[2019-05-26 04:02] LABS: Mean Corpuscular Volume 97 fL (80-100)
[2019-05-26 04:26] LABS: Albumin, Blood 2.3 g/dL (3.4-5.0); Anion Gap 7 mmol/L (6-16); Blood Urea Nitrogen 29 mg/dL (8-24); Bun/Creatinine Ratio 30.4 (12.0-20.0); CO2, Blood 25 mmol/L (21-32); Calcium, Blood 8.7 mg/dL (8.5-10.1); Chloride, Blood 101 mmol/L (98-108); Creatinine, Blood 0.95 mg/dL (0.40-1.00); Glomerular Filtration Rate >60 (60-); Glucose, Blood 114 mg/dL (70-99); Phosphorus, Blood 3.2 mg/dL (2.5-4.9); Potassium, Blood 4.3 mmol/L (3.5-5.5); Sodium, Blood 133 mmol/L (136-145)
--- NOTE | 2019-05-26 06:46 | NUR ---
SHIFT SUMMARY PT A & ORIENTED TO SELF; CONFUSED AT TIMES; SBA TO BSC FOR CORD MANAGEMENT; USES FWW BASELINE; VSS; DENIES CHEST PAIN; O2 SATS >3 ON 2.5L NC; SMALL BM DURING SHIFT; OCCULT SAMPLE SENT TO LAB; SLEPT WELL FOR A FEW HOURS; DENIES NEEDS AT THIS TIME; WILL CONTINUE TO MONITOR CLOSELY UNTIL HAND OFF TO DAY SHIFT RN
--- NOTE | 2019-05-26 19:14 | NUR ---
SHIFT SUMMARY: A&O X 3, SLIGHTLY ANXIOUS INTERMITTENTLY THROUGHOUT THE DAY. C/O HEADACHE, MEDICATED WITH TYLENOL. SOME PLUMMER, BUT RECOVERS QUICKLY, FUR POLISHER COUGH, GETTING BREATHING TX'S. SINUS RHYTHM, FUR POLISHER EDEMA BLE. REFUSING SCD'S. SBA TO BSC, GOOD URINE OUTPUT. ADEQUATE PO INTAKE. SHOWER OFFERED MULTIPLE TIMES TODAY. GAIT STEADY.
--- NOTE | 2019-05-26 21:15 | NUR ---
INITIAL ASSESSMENT PATIENT ALERT AND ORIENTED X 4, AFEBRILE. PATIENT ANXIOUS AT TIMES; MOSTLY WHEN SOB. PATIENT SBA. PATIENT USES CANE AT HOME. PATIENT REPORTS CHRONIC TINGLING IN BILAT FEET. PATIENT WEAK BUT ABLE TO MOVE ALL EXTREMITIES. PATIENT GIVEN PRN TYLENOL FOR COMPLAINT OF HEADACHE. PATIENT SATTING 90% AND GREATER ON 3 L NC. PATIENT STATES SHE WEARS 3 L NC CONTINUOUSLY AT HOME WELL. PATIENT SOB WITH EXERTION. LUNGS CLEAR IN UPPER LOBES AND DIMINISHED IN LOWER LOBES. PATIENT IN SR, HR IN THE 90S. SBP IN THE 160S. PATIENT RECEIVED SCHEDULED METOPROLOL. NONPITTING EDEMA NOTED TO BLES. PATIENT REFUSES SCDS. GI WNL. WNL. PATIENT RECEIVING LASIX BID. SCATTERED BRUISES NOTED TO BUES. IV FLUSHED AND SALINE LOCKED. BED LOW, CALL LIGHT IN REACH. WILL CONTINUE TO MONITOR PATIENT FREQUENTLY THROUGHOUT SHIFT.
--- NOTE | 2019-05-27 00:47 | NUR ---
PATIENT SLEEPING SOUNDLY UPON ENTERING ROOM. PATIENT AFEBRILE. PATIENT HAS NO COMPLAINTS OF PAIN. PATIENT SATTING 90% AND GREATER ON RA. HR IN THE 80S. SBP IN THE 140S. NO OTHER ACUTE CHANGES TO NOTE ON AT THIS TIME. WILL CONTINUE TO MONITOR.
--- NOTE | 2019-05-27 04:35 | NUR ---
PATIENT SLEEPING SOUNDLY UPON ENTERING ROOM. PATIENT AFEBRILE. PATIENT SATTING 90% AND GREATER ON RA. HR IN THE 90S. SBP IN THE 150S. NO OTHER ACUTE CHANGES TO NOTE ON AT THIS TIME. WILL CONTINUE TO MONITOR.
[2019-05-27 05:15] LABS: BASOPHILS ABSOLUTE AUTO 0.01 K/mm3 (0.00-0.23); BASOPHILS PERCENT AUTO 0 % (0-2); EOSINOPHILS PERCENT AUTO 0 % (0-6); Hematocrit 31.4 % (33.0-51.0); Hemoglobin 10.6 g/dL (11.5-16.0); IMMATURE GRAN PERCENT AUTO 4 % (0-1); LYMPHOCYTES ABSOLUTE AUTO 0.91 K/mm3 (0.84-5.20); LYMPHOCYTES PERCENT AUTO 8 % (21-46); MONOCYTES ABSOLUTE AUTO 0.58 K/mm3 (0.16-1.47); MONOCYTES PERCENT AUTO 5 % (4-13); Mean Corpuscular HGB 32.6 pg (26.0-34.0); Mean Corpuscular HGB Conc 33.8 g/dL (31.5-36.5); Mean Corpuscular Volume 97 fL (80-100); Mean Platelet Volume 10.3 fL (9.1-12.4); NEUTROPHILS ABSOLUTE AUTO 9.44 K/mm3 (1.96-9.15); NEUTROPHILS PERCENT AUTO 82 % (41-73); Platelet Count 342 K/mm3 (150-400); RDW Coefficient Variation 18.7 % (11.7-14.2); RDW Standard Deviation 66.3 fL (35.1-46.3); Red Blood Cell Count 3.25 M/mm3 (3.80-5.20); White Blood Cell Count 11.44 K/mm3 (4.00-11.30)
[2019-05-27 05:44] LABS: Albumin, Blood 2.5 g/dL (3.4-5.0); Anion Gap 7 mmol/L (6-16); Blood Urea Nitrogen 31 mg/dL (8-24); Bun/Creatinine Ratio 30.1 (12.0-20.0); CO2, Blood 29 mmol/L (21-32); Calcium, Blood 8.7 mg/dL (8.5-10.1); Chloride, Blood 100 mmol/L (98-108); Creatinine, Blood 1.03 mg/dL (0.40-1.00); Glomerular Filtration Rate 58 (60-); Glucose, Blood 124 mg/dL (70-99); Phosphorus, Blood 3.5 mg/dL (2.5-4.9); Sodium, Blood 136 mmol/L (136-145)
--- NOTE | 2019-05-27 06:42 | NUR ---
SHIFT SUMMARY PATIENT REMAINED ALERT AND ORIENTED X 4, AFEBRILE. PATIENT GIVEN PRN TYLENOL OT THIS SHIFT FOR COMPLAINT OF HEADACHE. PATIENT SBA TO BSC. PATIENT REMAINS WEAK. PATIENT DECREASED FROM HOME O2 LEVEL OF 3 L NC TO RA DURING SHIFT. PATIENT REMAINS SATTING 90% AND GREATER ON RA. PATIENT DOES BECOME SOB WITH EXERTION. PATIENT ANXIOUS AT TIMES WHEN BECOMES SOB. PATIENT REMAINED IN SR, HR 80S TO 90S. SBP 140S TO 160S. PATIENT REFUSING SCDS. GI WNL. NO BM THIS SHIFT. WNL. NO CHANGE TO SKIN. PATIENT REPOSITIONED SELF THROUGHOUT SHIFT. WBC AND BUN INCREASED THIS AM. PATIENT HAS NO COMPLAINTS AT THIS TIME. BED LOW, CALL LIGHT IN REACH. REPORT WILL BE GIVEN TO [facility] DAY SHIFT NURSE SHORTLY.
--- NOTE | 2019-05-27 07:29 | NUR ---
ASSUMED CARE: PT RESTING IN BED. SATTING LOW 90S ON RA AT THIS TIME. NO ACUTE NEEDS OR CONCERNS NOTED AT THIS TIME.
--- NOTE | 2019-05-27 18:03 | NUR ---
SHIFT SUMMARY: HAVE BEEN OFFERING PT SHOWER T/O DAY AND HAS BEEN REFUSING. O2 IN PLACE BETWEEN 0-3L FOR SOB. DR FRANCES CAME TO SEE PT THIS SHIFT, SEE NEW ORDERS. C/O HEADACHE T/O SHIFT AND STATED TRAMADOL WORKED IN THE BEGINNING. WILL GIVE NEXT DOSE WHEN AVAILABLE.
--- NOTE | 2019-05-27 21:07 | NUR ---
GAVE REPORT TO SOFYA CHOPRA WHO WILL ASSUME CARE OF PT
--- NOTE | 2019-05-28 04:10 | NUR ---
SHIFT SUMMARY: PATIENT VSS, CALL LIGHT WITHIN REACH AND USED APPROPRIATLY, X1 MEDICATION GIVEN PER EMAR FOR NORMAN. BED LOW AND LOCKED AND QUIET ENVIRONMENT PROVIDED FOR PATIENT TO REST.
[2019-05-28 05:46] LABS: Hematocrit 33.3 % (33.0-51.0); Hemoglobin 11.3 g/dL (11.5-16.0); Mean Corpuscular HGB 32.8 pg (26.0-34.0); Mean Corpuscular HGB Conc 33.9 g/dL (31.5-36.5); Mean Corpuscular Volume 97 fL (80-100); Mean Platelet Volume 10.6 fL (9.1-12.4); Platelet Count 333 K/mm3 (150-400); RDW Standard Deviation 63.5 fL (35.1-46.3); Red Blood Cell Count 3.45 M/mm3 (3.80-5.20); White Blood Cell Count 11.73 K/mm3 (4.00-11.30)
[2019-05-28 05:57] LABS: Anion Gap 6 mmol/L (6-16); Blood Urea Nitrogen 30 mg/dL (8-24); Bun/Creatinine Ratio 33.3 (12.0-20.0); CO2, Blood 32 mmol/L (21-32); Chloride, Blood 95 mmol/L (98-108); Glomerular Filtration Rate >60 (60-); Glucose, Blood 122 mg/dL (70-99); Potassium, Blood 4.3 mmol/L (3.5-5.5); Sodium, Blood 133 mmol/L (136-145)
[2019-05-28 06:41] LABS: BASOPHILS PERCENT MAN 0 % (0-2); EOSINOPHILS PERCENT MAN 0 % (0-6); LYMPHOCYTES ABSOLUTE MAN 1.17 K/mm3 (0.84-5.20); LYMPHOCYTES PERCENT MAN 10 % (21-46); MONOCYTES ABSOLUTE MAN 0.58 K/mm3 (0.16-1.47); MONOCYTES PERCENT MAN 5 % (4-13); MYELOCYTE ABSOLUTE MAN 0.23 K/mm3 (0.00-0.00); MYELOCYTE PERCENT MAN 2 % (0-0); NEUTROPHILS ABSOLUTE MAN 9.73 K/mm3 (1.96-9.15); SEG NEUTROPHILS PERCENT MAN 83 % (41-73); TOTAL CELLS COUNTED 120
--- NOTE | 2019-05-28 07:30 | NUR ---
ASSUMED CARE: PT RESTING QUIETLY AT THIS TIME. NO ACUTE NEEDS OR DISTRESS NOTED.
--- NOTE | 2019-05-28 18:03 | NUR ---
SHIFT SUMMARY: PT HAS BEEN SEEN BY JUAN DANIEL AND DR STOKES THIS SHIFT. ADJUSTMENTS MADE TO MEDS PER ORDERS. NYSTATIN ADDED FOR THRUSH AND ORAL PAIN. 0-3L PER COMFORT. INDEPENDENT TO BSC. DENIES NEEDS OR CONCENRS.
--- NOTE | 2019-05-29 07:10 | NUR ---
SHIFT SUMMARY NO ACUTE CHANGES NOTED THROUGH THE NIGHT. PT REMAINS A&O X4, VSS, HTN NOTED, O2 VIA NC @ 1 L, CONT BIOX IS ON, O2 SATS >92%, BREATHING TX Q4 PER RT, 1 ASSIST TO BSC, PAIN MEDICATED PRN PER EMAR. CALL LIGHT IN REACH
--- NOTE | 2019-05-29 07:23 | NUR ---
ASSUMED CARE: PT RESTING QUIETLY AT THIS TIME. ON 1L NC SATTING MID 90S. NO ACUTE NEEDS OR CONCERNS AT THIS TIME.
--- NOTE | 2019-05-29 11:53 | NUR ---
PT TRANSFERRED TO ROOM 232. REPORT CALLED TO [facility] HURD. PT TRANSFERRED VIA WHEEL CHAIR BY HOSPITAL STAFF.
--- NOTE | 2019-05-29 12:02 | NUR ---
PT ARRIVED TO UNIT FROM PCU. SITTING UP IN BED, EATING LUNCH. REQUESTING BREATHING TX. CALL LIGHT IN REACH. ASSISTED PT W/TURNING TV ON.
--- NOTE | 2019-05-29 12:06 | NUR ---
PT DECLINED BREATHING TX WHEN RT IN ROOM DUE TO EATING LUNCH.
--- NOTE | 2019-05-29 16:08 | NUR ---
SUMMARY NO ACUTE CHANGES SINCE ARRIVING TO UNIT. PT WORKING W/SPEECH THERAPY AT THIS TIME. PT ALERT AND ORIENTED. USES BSC INDEPENDENTLY. DECLINED OFFER FOR HEAT OR COLD TO NECK EARLIER IN SHIFT. TURNED OVER CARE TO NAV SAMAYOA.
--- NOTE | 2019-05-29 16:15 | NUR ---
ASSUMED CARE PT ALERT AND SITTING UP IN BED AT THIS TIME. SPEECH THERAPY WITH PT DOING A SWALLOW EVAL AT THIS TIME. SHE REPORTS SHE IS COMFORTABLE. RESPIRATORY RATE EVEN AND UNLABORED AT THIS TIME.
--- NOTE | 2019-05-29 18:50 | NUR ---
SHIFT SUMMARY PT HAD A SWALLOW EVAL THIS EVENING, CHANGED TO MECHANICAL SOFT DIET, PT TOLERATING WELL. PT IS A 1 PERSON ASSIST WHEN OOB. SHE DENIES SHORTNESS OF BREATH, RESPIRATIONS EVEN AND UNLABORED. NO SIGNIFICANT CHANGES TO REPORT AT THIS TIME. WILL CONTINUE TO MONITOR.
--- NOTE | 2019-05-30 06:14 | NUR ---
PT VSS T/O NIGHT, 2L O2 NC IN PLACE, PT REP LESS WOB THIS AM. PT C/O HEADACHE, MGD W/TYLENOL. PT UP TO BSC, IS USING CALL LIGHT FOR ASSISTANCE, WILL CONT TO MONITOR UNTIL REP GIVEN TO ONCOMING RN.
--- NOTE | 2019-05-30 09:41 | NUR ---
THERAPY: PT IN ROOM TO WORK WITH PATIENT. PT ABLE TO FOLLOW EXERCISES. SAFETY PLAN FOR HOME REVIEWED TO HELP PREVENT FALLS.
--- NOTE | 2019-05-30 17:33 | NUR ---
PT HAS BEEN STABLE THIS SHIFT. HYPERTENSIVE AT TIMES. PT HAS BEEN ABLE TO WEAN TO 1L O2. PT HAVING OCCASIONAL PRODUCTIVE COUGH. ST WORKED WITH THERAPY, CHANGED TO SOFT FINGER FOODS. PT HAS HAD NO TROUBLE SWALLOWING. CONT NYSTATIN FOR THRUSH. PT UP TO COMMODE INDEP. VOIDING WELL AND HAVING BM'S. PT HAD SHOWER THIS AFTERNOON. WORKED WELL WITH THERAPY. PAIN IN NECK AND BACK CONTROLLED WITH PRN TRAMADOL. PT USES CALL LIGHT APPROPRIATELY.
--- NOTE | 2019-05-31 10:57 | NUR ---
Spiritual care visit conducted. Patient is sitting on EOB and alert. Patient immediately informs me that she will be discharged today. Patient is nervous and excited about going home. 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 Patient is nervous about her strength level and about "the virus" and how she knows she would not fair well if she contracted it. I listen empathically, remind her of the risks of staying in the hospital, encourage self-care and provide pastoral grief counselor and prayer. Patient responds well and shows signs of reduced stress. Patient verbalizes appreciation for the time and care during her stay.
--- NOTE | 2019-05-31 13:43 | NUR ---
PT A&O DISCHARGED HOME AND TAKEN BY W/C TO PRIVATE CAR BY NIRAJ CHOPRA, PERSCRIPTIONS SEND TO [facility], INSTRUCTIONS REVIWED WITH PT, PT REPORTS NO FURTHUR QUESTIONS. D/C FOLDER SENT HOME WITH PT ALONG WITH PERSONAL BELONGINGS.
== END 2019-05-31 13:32 | disposition home health service (06) | DRG 193 ==
LOC: ER 03:57 → ERHOLD 13:08 → PCU 13:08 → SURS 13:44
PROVIDERS: Emergency Medicine; Internal Medicine; ADMIT Internal Medicine
PROC: 30233N1 Transfusion of Nonautologous Red Blood Cells into Peripheral Vein, Percutaneous Approach (ICD-10-PCS; principal; 2019-05-23)
DX: J18.9 Pneumonia, unspecified organism (principal); J96.21 Acute and chronic respiratory failure with hypoxia; G93.41 Metabolic encephalopathy; B37.0 Candidal stomatitis; I47.1 Supraventricular tachycardia; R26.9 Unspecified abnormalities of gait and mobility; J43.9 Emphysema, unspecified; B97.29 Other coronavirus as the cause of diseases classified elsewhere; Z87.891 Personal history of nicotine dependence; Z99.81 Dependence on supplemental oxygen; I10 Essential (primary) hypertension; G89.29 Other chronic pain; G62.9 Polyneuropathy, unspecified; Z88.0 Allergy status to penicillin; D63.8 Anemia in other chronic diseases classified elsewhere; R51 Headache; B95.2 Enterococcus as the cause of diseases classified elsewhere
CPT/HCPCS: 0099U; 36415; 36430; 36600; 71045; 71046; 71250; 80048; 80053; 80069; 82272; 82728; 82803; 82947; 83540; 83550; 83605; 83880; 84145; 84484; 85025; 86850; 86900; 86901; 86923; 87040; 87070; 87077; 87186; 87205; 90686; 92526; 92610; 93005; 93010; 93308; 94640; 94664; 94667; 94760; 94762; 96361; 96365; 96367; 96375; 97110; 97116; 97161; 97530; 98960; 99285-25; A9270; C1751; C9113; J0456; J0696; J1650; J1940; J2930; J7030; J7050; J7512; P9016; U0001

== ENCOUNTER 2019-07-03 14:49 | Inpatient (IN) | payer OTHER ==
[~2019-07-03] VITALS: Ht 152.4 cm; Wt 66.4 kg
[~2019-07-03 14:49] MED LIST changes: -ALBU90OI61 INH; -Duoneb 2.5-0.5 M3 ML NEB; -METO100ER PO; -Micro-K10 MEQ PO; -QUET300 PO
[2019-07-03] MEDS ORDERED: PRED20 PO (15:07)
[2019-07-03] MEDS ORDERED: Duoneb 2.5-0.5 M3 ML NEB (15:16)
[2019-07-03] MEDS ORDERED: ALBU90OI61 INH (15:17)
[2019-07-03] MEDS ORDERED: BUDE6HFA INH (15:20)
[2019-07-03] MEDS ORDERED: Micro-K10 MEQ PO (15:22)
[2019-07-03] MEDS ORDERED: FURO20 PO (15:22)
[2019-07-03 15:23] LABS: PCO2 Arterial 30.7 mmHg (35-45); PO2 Arterial 107 mmHg (80-100); pH Blood Arterial 7.36 (7.35-7.45)
[2019-07-03 15:23] LABS: BASOPHILS ABSOLUTE AUTO 0.02 K/mm3 (0.00-0.23); BASOPHILS PERCENT AUTO 0 % (0-2); EOSINOPHILS ABSOLUTE AUTO 0.02 K/mm3 (0.00-0.68); EOSINOPHILS PERCENT AUTO 0 % (0-6); Hematocrit 26.9 % (33.0-51.0); Hemoglobin 9.2 g/dL (11.5-16.0); IMMATURE GRAN ABSOLUTE AUTO 0.15 K/mm3 (0.00-0.10); IMMATURE GRAN PERCENT AUTO 1 % (0-1); LYMPHOCYTES ABSOLUTE AUTO 1.32 K/mm3 (0.84-5.20); LYMPHOCYTES PERCENT AUTO 7 % (21-46); MONOCYTES ABSOLUTE AUTO 0.87 K/mm3 (0.16-1.47); MONOCYTES PERCENT AUTO 5 % (4-13); Mean Corpuscular HGB 33.3 pg (26.0-34.0); Mean Corpuscular HGB Conc 34.2 g/dL (31.5-36.5); Mean Corpuscular Volume 98 fL (80-100); Mean Platelet Volume 10.7 fL (9.1-12.4); NEUTROPHILS ABSOLUTE AUTO 17.01 K/mm3 (1.96-9.15); NEUTROPHILS PERCENT AUTO 88 % (41-73); Platelet Count 212 K/mm3 (150-400); RDW Coefficient Variation 18.6 % (11.7-14.2); RDW Standard Deviation 69.2 fL (35.1-46.3); Red Blood Cell Count 2.76 M/mm3 (3.80-5.20); White Blood Cell Count 19.39 K/mm3 (4.00-11.30)
[2019-07-03] MEDS ORDERED: LISI20 PO (15:23)
[2019-07-03] MEDS ORDERED: METO100ER PO (15:25)
[2019-07-03] MEDS ORDERED: MONT10T PO (15:25)
[2019-07-03] MEDS ORDERED: OMEP20ER PO (15:28)
[2019-07-03] MEDS ORDERED: QUET300 PO (15:29)
[2019-07-03] MEDS ORDERED: THERA-D2000 UNIT PO (15:30)
[2019-07-03] MEDS ORDERED: TIOT18 INH (15:30)
[2019-07-03 15:39] LABS: Magnesium, Blood 2.2 mg/dL (1.6-2.4); Troponin I <0.015 ng/mL (0.000-0.040)
[2019-07-03 15:51] LABS: Alanine Aminotransfer (ALT/SGP 31 U/L (12-78); Albumin, Blood 2.8 g/dL (3.4-5.0); Alk Phos 183 U/L (50-136); Anion Gap 11 mmol/L (6-16); Aspartate Aminotrans (AST/SGOT 32 U/L (12-37); Bilirubin, Total 0.8 mg/dL (0.1-1.0); Blood Urea Nitrogen 26 mg/dL (8-24); Bun/Creatinine Ratio 14.6 (12.0-20.0); CO2, Blood 21 mmol/L (21-32); Calcium, Blood 7.8 mg/dL (8.5-10.1); Chloride, Blood 83 mmol/L (98-108); Creatinine, Blood 1.78 mg/dL (0.40-1.00); Globulin, Blood 2.8 g/dL (2.2-4.0); Glomerular Filtration Rate 31 (60-); Glucose, Blood 110 mg/dL (70-99); Potassium, Blood 6.2 mmol/L (3.5-5.5); Sodium, Blood 115 mmol/L (136-145); Total Protein, Blood 5.6 g/dL (6.4-8.2)
[2019-07-03 16:02] LABS: Source, Urine Catheter
[2019-07-03 16:04] LABS: Blood, Urine Neg (Neg); Glucose Qualitative, Urine Neg (Neg); Ketones, Urine Neg (Neg); Leukocyte Esterase, Urine Neg (Neg); Nitrite, Urine Neg (Neg); Protein, Urine Neg (Neg); Specific Gravity, Urine 1.015 (1.003-1.022); Urobilinogen, Urine NORM (Normal)
[2019-07-03 16:05] LABS: Appearance, Urine Clear (Clear); Bilirubin, Urine 1+ (Neg); Color, Urine Yellow (P-Yellow)
[2019-07-03 17:18] LABS: U Amphetamine Screen Not Detected; U Barbituate Screen Not Detected; U Benzodiazapine Screen Not Detected; U Buprenorphine Screen Not Detected; U Cannabinoids Screen Not Detected; U Cocaine Screen Not Detected; U Methadone Screen Not Detected; U Methamphetamine Screen Not Detected; U Opiates Screen Not Detected; U Oxycodone Screen Not Detected; U Phencyclidine Screen Not Detected; U Propoxyphene Screen Not Detected
[2019-07-03 17:53] LABS: Adenovirus Not Detected (NOT DETECT); Bordetella pertussis Not Detected (NOT DETECT); Chlamydophila pneumoniae Not Detected (NOT DETECT); Coronavirus 229E Not Detected (NOT DETECT); Coronavirus HKU1 Not Detected (NOT DETECT); Coronavirus NL63 Not Detected (NOT DETECT); Coronavirus OC43 Not Detected (NOT DETECT); Human Metapneumovirus Not Detected (NOT DETECT); Human Rhinovirus/Enterovirus Not Detected (NOT DETECT); Influenza A/2009-H1 Not Detected (NOT DETECT); Influenza A/H1 Not Detected (NOT DETECT); Influenza A/H3 Not Detected (NOT DETECT); Influenza B Not Detected (NOT DETECT); Mycoplasma pneumoniae Not Detected (NOT DETECT); Parainfluenza Virus 1 Not Detected (NOT DETECT); Parainfluenza Virus 2 Not Detected (NOT DETECT); Parainfluenza Virus 3 Not Detected (NOT DETECT); Parainfluenza Virus 4 Not Detected (NOT DETECT); Respiratory Syncytial Virus Not Detected (NOT DETECT)
[2019-07-03 19:22] LABS: Potassium, Blood 5.4 mmol/L (3.5-5.5)
--- NOTE | 2019-07-03 21:12 | NUR ---
ASSUMED CARE OF PT. PT SITTING SUPINE IN BED, HOB 45 DEGREES. PT TACHYPNEIC, SATS MID 90'S ON RA. PT ALERT AND ORIENTED BUT ANXIOUS. AFEBRILE/ AUDIBLE WHEEZES HEARD BILATERAL UPPER LOBES. PT HAS OCCASIONAL PRODUCTIVE COUGH. PT GIVEN FAN TO HELP EASE ANXIETY RELATED TO OXYGENATION. PT TACHYCARDIC WITH HR 110-140'S. BLOOD PRESSURE LABILE WITH MAPS>65. PT COMPLAINS OF NAUSEA, SORE THROAT, EAR PAIN. DURING ASSESSMENT IT WAS NOTICED THAT PT HAS WHITE PATCHES IN MOUTH, CALL TO HOSPITALIST FOR ORDER FOR NYSTATIN D/T THRUSH. SORENSEN PATENT AND DRAINING CLEAR YELLOW URINE. SKIN C/D/I, FRAGILE WITH SCATTERED ECCHYMOSIS BUE. SEE FULL ADMISSION ASSESSMENT
--- NOTE | 2019-07-03 22:09 | NUR ---
SPOKE WITH INEZ CRESPO. UPDATED ON PT STATUS, UPDATED LABS. PT TACHYCARDIC WITH PERIODS OF HYPOTENSION. CANNOT GIVE FLUID BOLUS AT THIS TIME D/T PT'S SODIUM LEVEL. WILL CONTINUE TO MONITOR AND KEEP PHYSICIAN UPDATED.
[2019-07-03 22:29] LABS: Bun/Creatinine Ratio 16.1 (12.0-20.0); Calcium, Blood 7.9 mg/dL (8.5-10.1); Creatinine, Blood 1.37 mg/dL (0.40-1.00); Potassium, Blood 5.9 mmol/L (3.5-5.5)
--- NOTE | 2019-07-04 00:45 | NUR ---
PT YELLING OUT THAT SHE CANNOT BREATHE, SATS 97% ON ROOM AIR. CALLED RT FOR BREATHING TX. MORE PRONOUNCED AUDIBLE WHEEZING THAT DOES NOT CLEAR WITH COUGH OR BREATHING TX. PT HALLUCINATING, AUDIBLE AND VISUAL HALLUCINATIONS. CAN ANSWER QUESTIONS APPROPRIATELY BUT IMMEDIATELY BEGINS TALKING GIBBERISH. SPOKE WITH INEZ CRESPO WHO CALLED DR. DIAZ WHO WILL COME SEE PATIENT. STAT ABG ORDERED. RT AT BEDSIDE.
[2019-07-04 01:09] LABS: PCO2 Arterial 32.9 mmHg (35-45); PO2 Arterial 69.2 mmHg (80-100)
[2019-07-04 01:25] LABS: BASOPHILS ABSOLUTE AUTO 0.01 K/mm3 (0.00-0.23); BASOPHILS PERCENT AUTO 0 % (0-2); EOSINOPHILS PERCENT AUTO 0 % (0-6); Hemoglobin 8.7 g/dL (11.5-16.0); IMMATURE GRAN ABSOLUTE AUTO 0.04 K/mm3 (0.00-0.10); IMMATURE GRAN PERCENT AUTO 0 % (0-1); LYMPHOCYTES ABSOLUTE AUTO 0.36 K/mm3 (0.84-5.20); LYMPHOCYTES PERCENT AUTO 3 % (21-46); MONOCYTES ABSOLUTE AUTO 0.05 K/mm3 (0.16-1.47); MONOCYTES PERCENT AUTO 0 % (4-13); Mean Corpuscular HGB 33.1 pg (26.0-34.0); Mean Corpuscular HGB Conc 33.5 g/dL (31.5-36.5); Mean Corpuscular Volume 99 fL (80-100); Mean Platelet Volume 10.1 fL (9.1-12.4); NEUTROPHILS PERCENT AUTO 96 % (41-73); Platelet Count 170 K/mm3 (150-400); RDW Coefficient Variation 18.8 % (11.7-14.2); RDW Standard Deviation 70.2 fL (35.1-46.3); Red Blood Cell Count 2.63 M/mm3 (3.80-5.20); White Blood Cell Count 13.06 K/mm3 (4.00-11.30)
[2019-07-04 01:44] LABS: Albumin, Blood 2.6 g/dL (3.4-5.0); Albumin/Globulin Ratio 0.9 (0.8-1.8); Bilirubin, Total 0.6 mg/dL (0.1-1.0); Bun/Creatinine Ratio 14.2 (12.0-20.0); Calcium, Blood 7.9 mg/dL (8.5-10.1); Creatinine, Blood 1.34 mg/dL (0.40-1.00); Globulin, Blood 2.8 g/dL (2.2-4.0); Potassium, Blood 5.7 mmol/L (3.5-5.5); Total Protein, Blood 5.4 g/dL (6.4-8.2)
--- NOTE | 2019-07-04 01:50 | NUR ---
PT HAS NEW ONSET SLIGHT LEFT SIDE FACIAL DROOP. DR. OH NOTIFIED.
--- NOTE | 2019-07-04 02:25 | NUR ---
AT BEDSIDE TO EXAMINE PATIENT
[2019-07-04 05:27] LABS: International Normalized Ratio 1.02; Prothrombin Time Results 10.9 Sec (9.7-11.5)
[2019-07-04 05:28] LABS: Alanine Aminotransfer (ALT/SGP 30 U/L (12-78); Albumin, Blood 2.5 g/dL (3.4-5.0); Alk Phos 165 U/L (50-136); Anion Gap 8 mmol/L (6-16); Aspartate Aminotrans (AST/SGOT 32 U/L (12-37); Bilirubin, Total 0.6 mg/dL (0.1-1.0); Blood Urea Nitrogen 18 mg/dL (8-24); Bun/Creatinine Ratio 14.9 (12.0-20.0); CO2, Blood 22 mmol/L (21-32); Chloride, Blood 95 mmol/L (98-108); Creatinine, Blood 1.21 mg/dL (0.40-1.00); Globulin, Blood 2.6 g/dL (2.2-4.0); Glomerular Filtration Rate 48 (60-); Glucose, Blood 109 mg/dL (70-99); Potassium, Blood 5.4 mmol/L (3.5-5.5); Sodium, Blood 125 mmol/L (136-145); Total Protein, Blood 5.1 g/dL (6.4-8.2); Vancomycin, Random 16.6 ug/mL
[2019-07-04 05:35] LABS: Hematocrit 23.8 % (33.0-51.0); Hemoglobin 8.3 g/dL (11.5-16.0); Mean Corpuscular HGB 33.6 pg (26.0-34.0); Mean Corpuscular HGB Conc 34.9 g/dL (31.5-36.5); RDW Coefficient Variation 18.6 % (11.7-14.2); RDW Standard Deviation 67.5 fL (35.1-46.3); Red Blood Cell Count 2.47 M/mm3 (3.80-5.20); White Blood Cell Count 11.03 K/mm3 (4.00-11.30)
[2019-07-04 05:50] LABS: Mean Corpuscular Volume 96 fL (80-100); Mean Platelet Volume 10.9 fL (9.1-12.4); Platelet Count 147 K/mm3 (150-400)
[2019-07-04 05:55] LABS: BAND PERCENT MAN 1 % (0-8); BASOPHILS PERCENT MAN 0 % (0-2); EOSINOPHILS PERCENT MAN 0 % (0-6); LYMPHOCYTES ABSOLUTE MAN 0.33 K/mm3 (0.84-5.20); LYMPHOCYTES PERCENT MAN 3 % (21-46); MONOCYTES PERCENT MAN 0 % (4-13); NEUTROPHILS ABSOLUTE MAN 10.69 K/mm3 (1.96-9.15); SEG NEUTROPHILS PERCENT MAN 96 % (41-73); TOTAL CELLS COUNTED 100
--- NOTE | 2019-07-04 06:45 | NUR ---
SHIFT SUMMARY PT CONTINUES TO DETERIORATE MENTALLY. PT HAVING INCREASED HALLUCINATIONS, PULLED BOTH IV'S AND ATTEMPTING TO PULL SORENSEN CATHETER OUT. PT PLACED IN BILATERAL SOFT WRIST RESTRAINTS. PT UNABLE BELIEVES SHE IS IN "BOTHELL", THAT IS IT " 1950'S" AND THAT SHE IS "52 YEARS OLD". PT YELLING OUT FOR HER DAD. PT SCREAMING/YELLING, VISUAL/AUDITORY HALLUCINATIONS, SPEAKING NONSENSICAL. PT REMAINS ON ROOM AIR WITH SAT IN THE MID 90'S. WILL REPORT TO DAYSHIFT NURSE.
--- NOTE | 2019-07-04 07:15 | NUR ---
ASSUMED CARE BEDSIDE REPORT RECIEVED. PT IS LAYING IN BED, FIDGETING, AND RESTLESS. PT WITH RUY VEST AND SBW RESTRAINTS IN PLACE. PT PULLING ON RESTRAINTS. PT IS YELLING OUT NONSENSICALLY. PT IS ALERT TO SELF ONLY. PT IS CONFUSED AND HAS BOTH AUDITORY AND VISUAL HALLUCINATIONS. PT WITH OCCASIONAL CLEAR SPEECH. PT WILL SQUEEZE HANDS UPON COMMAND, STRENGTH EQUAL. VITAL SIGNS STABLE. PT ON ROOM AIR. SORENSEN IN PLACE DRAINING CLEAR YELLOW URINE. PT WITH NO IV ACCESS AT THIS TIME. WILL CONTINUE TO MONITOR.
--- NOTE | 2019-07-04 13:15 | NUR ---
PAL CARE NOTE: REFERRAL RECEIVED FOR AD/POLST AND S/S MANAGEMENT. EMR REVIEWED AND CASE CONFERENCED WITH NURSING. PT IS IN ENHANCED ISOLATION AND IS CURRENTLY HAVE VISUAL AND AUDITORY HALLUCINATIONS. NO VISIT MADE TO ROOM. PT FAMILIAR TO PALLIATIVE CARE FROM RECENT AND OTHER PREV VISITS OVER THE PAST COUPLE OF YEARS. DESPITE O2 DEP COPD AND OTHER CHRONIC ILLNESSES PT HAS ALWAYS EXPRESSED DESIRE TO REMAIN A FULL CODE. SHE HAS IDENTIFIED CARYN FRED, HER SO HER SURROGATE DECISION MAKER IN THE EVENT SHE IS NOT ABLE TO DO THIS FOR HERSELF. NO CONTACT MADE TODAY. IF PT REMAINS COGNITIVELY IMPAIRED AND/OR HER PHYSICAL STATUS DECLINES WE WILL CONTACT HIM FOR ASSIST IN IDENTIFYING GOALS OF CARE AND MEDICAL DECISION MAKING. SO AND PT LIVE IN SAME HOME IN [place] AND HE HAS BEEN HER PRIMARY CG ON D/C FROM HOSPITAL PREVIOUSLY.
--- NOTE | 2019-07-04 17:08 | NUR ---
SHIFT SUMMARY NO ACUTE CHANGES THIS SHIFT. PT REMAINS ALERT AND AWAKE WITH AUDITORY AND VISUAL HALLUCINATIONS. PT IS CONFUSED. PT ABLE TO FOLLOW SIMPLE DIRECTIONS FOR VERY BREIF PERIODS OF TIME. PT CONTINUES TO ATTEMPT TO GET OUT OF BED AND PULL AT LINES/CORDS. PT REMAINS IN RUY VEST AND SBW RESTRAINTS. VITAL SIGNS HAVE REMAINED STABLE. PT ON ROOM AIR. POWERGLIDE TO ARTURO REMAINS C/D/I, NS INFUSING AT 150 ML/HR. PT WITH SORENSEN IN PLACE WITH CLEAR YELLOW URINE OUTPUT NOTED. WILL CONTINUE TO MONITOR AND REPORT OFF TO ONCOMING RN.
--- NOTE | 2019-07-04 20:00 | NUR ---
ASSUMED CARE OF PT AT 1915. REPORT RECEIVED. PT PRESENTS IN BED PLEASANT ALTHOUGH VERY CONFUSED. PT HAS BEEN PULLING AGGRESSIVELY AT HER RESTRAINTS WELL HAS BEEN ABLE TO PULL OFF HER STAT LOCK FOR SORENSEN CATHETER. PT FREQUENTLY YELLING OUT. PT'S SISTER, GEENA CALLS TO CHECK ON PT. UPDATE GIVEN. WILL REVIEW CHART AND PLAN OF CARE FOR THIS PT.
--- NOTE | 2019-07-05 01:02 | NUR ---
PT CONTINUES WITH AMS. FREQUENTLY YELLS OUT. DOES NOT HOLD TO CONVERSATION OR HAVE ANY CONNECTION TO TOPIC AT HANDS. PT FREQUENTLY TRYING TO GET AHOLD OF HER CATHETER, AND HAS MANAGED TO GET HER STATLOCK OFF SEVERAL TIMES. HAS EXPIRATORY WHEEZES. DRY COUGH AT TIMES. HAVE BEEN TURNING PT Q 2 HOURS TO PROTECT SKIN INTEGRITY.
--- NOTE | 2019-07-05 02:00 | NUR ---
PT AT TIMES WILL FALL ASLEEP, AND THEN AWAKEN IN SHORT TIME AND BEGIN YELLING AGAIN. DOES MOVE ABOUT THE BED OFTEN. VERY CONFUSED. SPEAKS TO PERSONS THAT ARE NOT IN THE ROOM. VERBALIZES VISUAL HALLUCINATIONS.
[2019-07-05 04:06] LABS: BASOPHILS ABSOLUTE AUTO 0.01 K/mm3 (0.00-0.23); BASOPHILS PERCENT AUTO 0 % (0-2); EOSINOPHILS PERCENT AUTO 0 % (0-6); Hematocrit 23.7 % (33.0-51.0); Hemoglobin 7.8 g/dL (11.5-16.0); IMMATURE GRAN ABSOLUTE AUTO 0.16 K/mm3 (0.00-0.10); IMMATURE GRAN PERCENT AUTO 1 % (0-1); LYMPHOCYTES ABSOLUTE AUTO 0.96 K/mm3 (0.84-5.20); LYMPHOCYTES PERCENT AUTO 7 % (21-46); MONOCYTES PERCENT AUTO 8 % (4-13); Mean Corpuscular HGB 33.6 pg (26.0-34.0); Mean Corpuscular HGB Conc 32.9 g/dL (31.5-36.5); Mean Platelet Volume 10.4 fL (9.1-12.4); NEUTROPHILS ABSOLUTE AUTO 12.29 K/mm3 (1.96-9.15); NEUTROPHILS PERCENT AUTO 85 % (41-73); Platelet Count 164 K/mm3 (150-400); RDW Coefficient Variation 19.2 % (11.7-14.2); RDW Standard Deviation 73.8 fL (35.1-46.3); Red Blood Cell Count 2.32 M/mm3 (3.80-5.20); White Blood Cell Count 14.52 K/mm3 (4.00-11.30)
[2019-07-05 04:08] LABS: Mean Corpuscular Volume 102 fL (80-100)
[2019-07-05 04:32] LABS: Percent Saturation 107.1 % (15.0-50.0)
[2019-07-05 04:34] LABS: Albumin, Blood 2.5 g/dL (3.4-5.0); Bilirubin, Total 0.5 mg/dL (0.1-1.0); Bun/Creatinine Ratio 14.8 (12.0-20.0); Calcium, Blood 7.8 mg/dL (8.5-10.1); Creatinine, Blood 1.08 mg/dL (0.40-1.00); Globulin, Blood 2.6 g/dL (2.2-4.0); Magnesium, Blood 2.3 mg/dL (1.6-2.4); Total Protein, Blood 5.1 g/dL (6.4-8.2)
[2019-07-05 04:53] LABS: Thyroid Stimulating Hormone 1.83 uIU/mL (0.360-4.800)
--- NOTE | 2019-07-05 06:21 | NUR ---
PT HAS BEEN ABLE TO SLEEP FOR THE PAST FEW HOURS. NOT YELLING OUT. PT HAS NOT FOLLOWED DIRECTIONS. REMAINS AFEBRILE. MAINTAINS > 90 PERCENT SATURATIONS WITH 1 L/M O2 PER NASAL CANNULA. WILL CONTINUE TO MONITOR PT, AND WILL REPORT OFF TO ONCOMING RN.
--- NOTE | 2019-07-05 09:12 | NUR ---
CARE ASSUMED CARE AND REPORT ASSUMED FROM INOCENCIA CHOPRA. PT SLEEPING BUT IS AROUSABLE TO VOICE AND PAIN. WILL FOLLOW SELECTIVE COMMANDS. RECEIVED BEDBATH AND LINEN CHANGE THIS AMD AND PT CONTINUALLY WAS ASKING STAFF TO STOP TURNING HER. WERE ABLE TO ACCOMPLISH BATH AND LINEN CHANGE. SORENSEN CATH REMAINS SECURE AND PATENT; BLOOD TINGED URINE; WILL MONITOR. PT RESTRAINED WITH RUY VEST AND BUE RESTRAINTS. MOUTH HAS ACTIVE THRUSH WITH DRIED CRUSTS AROUND LIPS; ATTEMPTED TO REMOVE BUT PT REFUSED CARE. PT ABLE TO SWALLOW PILLS AND USE NYSTATIN MOUTH RISE APPROPRIATELY. NO SIGNS OF CHOKING OR ASPIRATION. PT HAS UPPER AIRWAY WHEEZES; MD AND RT AWARE; WILL MONITOR. CONTINUALLY HAS NECK COCKED BACK AND IS LOOKING UPRIGHT. NSR, HR 90S AT THIS TIME. AFEBRILE. WILL CONTINUE TO MONITOR.
--- NOTE | 2019-07-05 11:59 | NUR ---
REASSESSMENT PT CONTINUES TO SLEEP BUT AROUSES TO PAINFUL STIMULI. VSS. NSR, HR 90S. AFEBRILE. CONTINUES TO HAVE AUDIBLE UPPER WHEEZE. WILL CONTINUE TO MONITOR.
--- NOTE | 2019-07-05 17:38 | NUR ---
SHIFT SUMMARY PT REMAINED IN BED ENTIRE SHIFT. REMOVED FROM RESTRAINTS AROUND 1400. HOB ELEVATED AND PT TURNED Q2H. HAS BEEN DROWSY, OBTUNDED WITH AROUSAL TO PAINFUL STIMULI. ONCE AWAKE, SHE IS ABLE TO SWALLOW HER PILLS AND SWISH WITHOUT SIGNS OF CHOKING. HAS HAD UPPER AIRWAY EXPIRATORY WHEEZE ENTIRE SHIFT. REMAINED IN NSR, HR 90S WITH STABLE BP. AFEBRILE. BEDBATH AND LINEN CHANGE COMPLETED IN AM. WILL GIVE BEDSIDE, HANDOFF REPORT TO CARLTON RN.
--- NOTE | 2019-07-05 19:00 | NUR ---
ASSUMED CARE NOTE: ASSUMED CARE OF PT @ 1900, RECEVIED REPORT FROM KALEE CHOPRA. UPON ENTERING ROOM PT WAS SLEEPING, HOWEVER, PT WAS ABLE TO RESPOND TO VERBAL AND PAINFUL STIMULI. PT IS ABLE TO FOLLOW SIMPLE COMMANDS, UNABLE TO CARRY A CONVERSTATION. PT IS ON 2L OF O2 VIA NC, WITH SPO2 ABOVE 95% PT IS IN NSR WITH HR IN THE 90'S. BOWEL TONES HEARD IN ALL FOUR QUADRANTS. STRONG PERIPHERAL PULSES IN ALL EXTREMITIES. MINIMAL SWELLING NOTED IN BLE. SORENSEN PATNET AND DRAINING CLEAR YELLOW URINE. WILL CONTINUE TO MONITOR PT T/O SHIFT, BED AT LOWEST LEVEL, BED ALARM ON.
--- NOTE | 2019-07-05 21:48 | NUR ---
UPDATE: PT IS ALERT AND ORIENTED TO SELF, PLACE. PT IS ABLE TO FOLLOW DIRECTIONS. PT WAS UNAWARE OF TIME, PT WAS ABLE TO STATE YEAR. PT WAS ORIENTED TO ENVIRONMENT.
[2019-07-06 05:22] LABS: Vancomycin, Trough 13.3 ug/mL (5.0-10.0)
--- NOTE | 2019-07-06 05:50 | NUR ---
SHIFT SUMMARY: NO SIGNIFICANT CHANGES DURING SHIFT. PT CONTINUES TO RESPOND TO VERBAL AND PAINFUL STIMULI. PT HAS ASSISTED WITH TURNS WHEN ASKED TO DO SO. PT REAMINS ON 2L OF O2 VIA NC, WITH SPO2 @ 98 %. WHEN O2 WAS TURNED OFF, PT SPO2 DROPPED INTO THE 80'S. PT HAS BEEN IN NSR WITH HR IN THR 80'S. PT HAS SAT IN HIGH-FLOWLER'S POSITION TO TAKE PILLS AND DRINK WATER. PT IS ABLE TO BE ORIENTED WHEN AWAKE. NIGHT TIME METOPROLOL WAS HELD DUE TO SBP BEING LESS THAN 110. PT BLOOD PRESSURE HAS BEEN SOFT WHILE PATIENTS SLEEPS. ONCE PT IS STIMULATED BP INCREASES. PT DID NOT HAVE A BM DURING SHIFT. SORENSEN PATNET AND DRAINING ROGELIO COLORED URINE. PT ARTURO POWERGLIDE IS POSITIONAL. PT WAS REPOSITIONED Q2H. BED AT LOWEST LEVEL, BED ALARM ON. WILL CONTINUE TO MONITOR PT UNTIL REPORT IS GIVEN TO ONCOMING SHIFT.
--- NOTE | 2019-07-06 07:55 | NUR ---
ASSUMED CARE: REPORT RECEIVED FROM YAKOV Rosales RN. ASSUMED CARE OF THIS PT AT APPROX 0700. ON ASSESSMENT, THE PT IS A&O x4, PLEASANT & COOPERATIVE. LS ARE WHEEZING T/O, PT ON 2L NC W/ O2 SATS > 92%. MONITOR SHOWS SR W/ HR 80-90s, BP STABLE. PT HAS NO GI COMPLAINTS. SORENSEN PATENT/ DRAINING DARK YELLOW URINE. SKIN OVERALL FRAGILE, BUT INTACT. WILL CONTINUE TO MONITOR & UPDATE NEEDED.
--- NOTE | 2019-07-06 09:44 | NUR ---
DR SU: PROVIDER AT BEDSIDE TO EVAL PT. ORDERS PLACED, STATUS CHANGED TO MED NO TELE.
--- NOTE | 2019-07-06 17:21 | NUR ---
SHIFT SUMMARY: NO ACUTE CHANGES SINCE PRIOR UPDATES. PT REMAINS A&O, PLEASANT & COOPERATIVE. SHE NEEDS ENCOURAGEMENT TO COMPLETE ADLs & TO CALM HER BREATHING AT TIMES. LS W/ WHEEZING T/O, NEB TX's PRN PER RT. PT HAD ONE HARD BM THIS AM, FOLLOWED BY NUMBEROUS EPISODES OF SOFT/ LOOSE STLS AFTER RECEIVING BOWEL CARE W/ AM MEDS. NO BM's NOTED PRIOR TO THIS SINCE ADMISSION. SORENSEN REMOVED THIS AM & PT IS VOIDING W/O DIFFICULTY. ATTENDS IN PLACE FOR OCCASIONAL STRESS INCONTINENCE PER HER REPORT. SKIN CONDITION IS OVERALL UNCHANGED. WILL CONTINUE TO MONITOR & REPORT OFF TO ONCOMING RN.
--- NOTE | 2019-07-07 03:42 | NUR ---
07/07/19 0255 BLADDER SCAN =279 ML. EARLIER PT WAS INCONTINENT OF URINE AND STOOL PER COMMERCIAL DRIVER'S LICENSE DRIVER. ABDOMEN SOFT AND DENIES ANY DISCOMFORT.
[2019-07-07 06:45] LABS: BASOPHILS ABSOLUTE AUTO 0.03 K/mm3 (0.00-0.23); BASOPHILS PERCENT AUTO 0 % (0-2); EOSINOPHILS PERCENT AUTO 1 % (0-6); Hemoglobin 8.1 g/dL (11.5-16.0); IMMATURE GRAN ABSOLUTE AUTO 0.08 K/mm3 (0.00-0.10); IMMATURE GRAN PERCENT AUTO 1 % (0-1); LYMPHOCYTES PERCENT AUTO 19 % (21-46); MONOCYTES ABSOLUTE AUTO 1.26 K/mm3 (0.16-1.47); MONOCYTES PERCENT AUTO 12 % (4-13); Mean Corpuscular HGB 32.8 pg (26.0-34.0); Mean Corpuscular HGB Conc 32.4 g/dL (31.5-36.5); Mean Corpuscular Volume 101 fL (80-100); Mean Platelet Volume 10.8 fL (9.1-12.4); NEUTROPHILS ABSOLUTE AUTO 7.36 K/mm3 (1.96-9.15); NEUTROPHILS PERCENT AUTO 67 % (41-73); Platelet Count 158 K/mm3 (150-400); RDW Standard Deviation 73.2 fL (35.1-46.3); Red Blood Cell Count 2.47 M/mm3 (3.80-5.20); White Blood Cell Count 10.93 K/mm3 (4.00-11.30)
[2019-07-07 06:57] LABS: Alanine Aminotransfer (ALT/SGP 32 U/L (12-78); Albumin, Blood 2.3 g/dL (3.4-5.0); Albumin/Globulin Ratio 0.7 (0.8-1.8); Alk Phos 125 U/L (50-136); Anion Gap 5 mmol/L (6-16); Aspartate Aminotrans (AST/SGOT 26 U/L (12-37); Bilirubin, Total 0.4 mg/dL (0.1-1.0); Blood Urea Nitrogen 19 mg/dL (8-24); Bun/Creatinine Ratio 20.9 (12.0-20.0); CO2, Blood 26 mmol/L (21-32); Calcium, Blood 8.3 mg/dL (8.5-10.1); Chloride, Blood 102 mmol/L (98-108); Creatinine, Blood 0.91 mg/dL (0.40-1.00); Globulin, Blood 3.1 g/dL (2.2-4.0); Glomerular Filtration Rate >60 (60-); Glucose, Blood 90 mg/dL (70-99); Potassium, Blood 3.8 mmol/L (3.5-5.5); Sodium, Blood 133 mmol/L (136-145); Total Protein, Blood 5.4 g/dL (6.4-8.2)
--- NOTE | 2019-07-07 07:23 | NUR ---
07/07/19 0600 PT FINALLY VOIDED ON BSC THIS AM. VITALS STABLE AND SLEPT WELL THIS SHIFT. MEDICATED ONCE FOR A HEADACHE WITH RELIEF. SEE PREVIOUS NOTE.
--- NOTE | 2019-07-07 13:46 | NUR ---
Spiritual care visit conducted. Patient is resting in bed but awakens to the sound of her name. Patient immediately states that she is exhausted and can't seem to shake it off. Patient asks if I could pray for her. I gladly provide prayer. Patient then tells me that she can't figure out all that has happened to her recently in terms of her hospital stay. I help fill in some of the gaps. Patient begins to fall back to sleep so I tell her to go ahead and go back to resting. I will continue to remain available to patient and family.
--- NOTE | 2019-07-07 17:45 | NUR ---
SHIFT SUMMARY PT ALERT AND ORIENTED, COOPERATIVE WITH CARE THIS SHIFT. PT IS EXTREMELY TENDER TO TOUCH. PT WORKED WITH PT THIS SHIFT. PT STANDBY ASSIST TO BEDSIDE COMODE THIS SHIFT. PT CURRENTLY SITTING UP IN BED AWAITING DINNER.
--- NOTE | 2019-07-08 06:26 | NUR ---
MAGAZINE HAND SUMMARY Slept well after receiving one norco for headache in the late evening. A&OX4, up independently to commode. Lungs with wheezes in upper lobes and diminished. Strong non productive cough despite receiving guafenisen to loosen secretions. Medium loose stool on BSC in evening. refused bowel meds.
[2019-07-08 07:13] LABS: Albumin, Blood 2.5 g/dL (3.4-5.0); Anion Gap 8 mmol/L (6-16); Blood Urea Nitrogen 20 mg/dL (8-24); Bun/Creatinine Ratio 25.9 (12.0-20.0); CO2, Blood 26 mmol/L (21-32); Calcium, Blood 8.4 mg/dL (8.5-10.1); Chloride, Blood 98 mmol/L (98-108); Creatinine, Blood 0.77 mg/dL (0.40-1.00); Glomerular Filtration Rate >60 (60-); Glucose, Blood 125 mg/dL (70-99); Phosphorus, Blood 3.2 mg/dL (2.5-4.9); Potassium, Blood 4.4 mmol/L (3.5-5.5); Sodium, Blood 132 mmol/L (136-145)
--- NOTE | 2019-07-08 16:41 | NUR ---
ASSUMED CARE FROM REBEKA CHOPRA.
--- NOTE | 2019-07-08 16:56 | NUR ---
SHIFT SUMMARY PATIENT DENIES PAIN, NAUSEA, AND SHORTNESS OF BREATH. PATIENT DOES GET SHAKY AND SHORT OF BREATH WITH ACTIVITY. PATIENT TRANSFERS TO BSC INDEPENDENTLY. PATIENT HAS REQUESTED TWO NEBULIZER TREATMENTS THIS SHIFT. POOR APPETITE. REPORT GIVEN TO NAV SINGH. CALL LIGHT IN REACH.
--- NOTE | 2019-07-08 18:09 | NUR ---
PT PLEASANT SINCE TRANSFER TO MY CARE THIS BOGDAN. SOME C.O HEADACHE JUST NOW. TREATED WITH COLD WASHCLOTH AND TYLENOL. CONTINUE TO FOLLOW. NO OTHER CONCERNS AT THIS TIME. BED IN [facility], CALL LITE IN REACH CALLS APPROP
[2019-07-09 04:40] LABS: Albumin, Blood 2.4 g/dL (3.4-5.0); Anion Gap 7 mmol/L (6-16); Blood Urea Nitrogen 26 mg/dL (8-24); CO2, Blood 27 mmol/L (21-32); Calcium, Blood 8.2 mg/dL (8.5-10.1); Chloride, Blood 95 mmol/L (98-108); Creatinine, Blood 1.04 mg/dL (0.40-1.00); Glomerular Filtration Rate 57 (60-); Glucose, Blood 121 mg/dL (70-99); Phosphorus, Blood 2.3 mg/dL (2.5-4.9); Potassium, Blood 4.7 mmol/L (3.5-5.5); Sodium, Blood 129 mmol/L (136-145)
--- NOTE | 2019-07-09 04:44 | NUR ---
SHIFT SUMMARY PT HAS RESTED OFF AND ON TONIGHT. SHE HAS COMPLAINED OF A NORMAN THIS SHIFT THAT SHE REPORTS SHE HAS HAD OFF AND ON FOR THE LAST FEW WEEKS, AND REPORTS THAT IT COMES ON MOSTLY AT NIGHT. MEDICATED WITH TYLENOL AND A ONE TIME DOSE OF NAPROXEN PER ORDERS. PT HAS OCCASIONAL SHORTNESS OF BREATH MOSTLY WITH EXERTION. 3L O2 IN PLACE. LUNGS WITH EXPIRATORY WHEEZES T/O. SOLUMEDROL AND CIPRO CONTINUED PER ORDERS. THERE ARE NO ACUTE CHANGES TO REPORT, ASSESSMENT UNCHANGED. BED IN LOWEST POSITION, CALL LIGHT WITHIN REACH. WILL CONTINUE TO MONITOR AND REPORT TO ONCOMING RN.
--- NOTE | 2019-07-09 16:33 | NUR ---
SHIFT SUMMARY PT AXO, PLEASANT AND COOPERATIVE WITH CARE. VSS. POWERGLIDE PATENT AND SALINE LOCKED. 99% ON 3L. PT AMBULATED THE UNIT THIS SHIFT WITH NOISE TESTER ESCORT. PT MEDICATED FOR H/A PER EMAR. PT REPORTS SOME IMPROVMENT, REFUSED ICE PACK. BED IN LOW POSITION, CALL LIGHT WITHIN REACH. PT CALLS APPROPRIATELY.
[2019-07-10 07:47] LABS: Albumin, Blood 2.4 g/dL (3.4-5.0); Anion Gap 8 mmol/L (6-16); Blood Urea Nitrogen 27 mg/dL (8-24); Bun/Creatinine Ratio 27.3 (12.0-20.0); CO2, Blood 30 mmol/L (21-32); Calcium, Blood 8.4 mg/dL (8.5-10.1); Chloride, Blood 94 mmol/L (98-108); Creatinine, Blood 0.99 mg/dL (0.40-1.00); Glomerular Filtration Rate >60 (60-); Glucose, Blood 81 mg/dL (70-99); Phosphorus, Blood 2.9 mg/dL (2.5-4.9); Potassium, Blood 4.4 mmol/L (3.5-5.5); Sodium, Blood 132 mmol/L (136-145)
[2019-07-10] MEDS ORDERED: CIPR500 PO (10:00)
[2019-07-10] MEDS ORDERED: GUAI600T33 PO (10:01)
[2019-07-10] MEDS ORDERED: LACT PO (10:02)
[2019-07-10] MEDS ORDERED: Prednisone10 MG PO (10:03)
--- NOTE | 2019-07-10 12:11 | NUR ---
DISCHARGE DISCHARGE INSTRUCTIONS, FOLLOW UP APPOINTMENTS AND MEDICATION LIST REVIEWED WITH PT. QUESTIONS/CONCERNS ANSWERED. PT PERSONAL PORTABLE O2 TANK BROUGHT FROM HOME, TANK IS EMPTY, PTS O2 PROVIDER, MARLON, CALLED. MARLON WILL DELIVER A PORTABLE TANK FOR PT TO BE DISCHARGED WITH. PT VERBALLY INDICATED UNDERSTANDING OF ALL INSTRUCTIONS RECEIVED
== END 2019-07-10 12:38 | disposition home health service (06) | DRG 871 ==
LOC: ER 14:49 → ICUW 16:46 → MEDS 07-06 18:45
PROVIDERS: Emergency Medicine; Internal Medicine; Nurse Practitioner Acute Care; ADMIT Internal Medicine
DX: A41.81 Sepsis due to Enterococcus (principal); J15.8 Pneumonia due to other specified bacteria; J44.0 Chronic obstructive pulmonary disease with (acute) lower respiratory infection; J44.1 Chronic obstructive pulmonary disease with (acute) exacerbation; E87.2 Acidosis; N17.9 Acute kidney failure, unspecified; E87.1 Hypo-osmolality and hyponatremia; J96.11 Chronic respiratory failure with hypoxia; R65.20 Severe sepsis without septic shock; E87.5 Hyperkalemia; I10 Essential (primary) hypertension; F32.9 Major depressive disorder, single episode, unspecified; F41.9 Anxiety disorder, unspecified; E83.39 Other disorders of phosphorus metabolism; D63.8 Anemia in other chronic diseases classified elsewhere; F03.90 Unspecified dementia, unspecified severity, without behavioral disturbance, psychotic disturbance, mood disturbance, and anxiety; E83.51 Hypocalcemia; G62.9 Polyneuropathy, unspecified; Z99.81 Dependence on supplemental oxygen; Z88.5 Allergy status to narcotic agent; Z88.0 Allergy status to penicillin; Z88.8 Allergy status to other drugs, medicaments and biological substances; Z79.899 Other long term (current) drug therapy; Z87.891 Personal history of nicotine dependence
CPT/HCPCS: 0099U; 36415; 36600; 51702; 70450; 70491; 71045; 71260; 74177; 80048; 80053; 80069; 80202; 81003; 82140; 82607; 82728; 82746; 82803; 83540; 83550; 83605; 83735; 83880; 84132; 84145; 84295; 84443; 84484; 85025; 85610; 86141; 86592; 86850; 86900; 86901; 87040; 87081; 93005; 93010; 94640; 94644; 94760; 96365-59; 96375-59; 97110; 97162; 97165; 97535; 99285-25; A9270; A9270-GY; C1751; C9113; J0456; J0692; J1630; J1644; J1650; J1815; J1956; J2060; J2405; J2920; J2930; J3010; J3370; J7030; J7050; J7512; Q9967; U0002

== ENCOUNTER 2019-08-05 11:58 | Inpatient (IN) | payer OTHER ==
[~2019-08-05] VITALS: Ht 152.4 cm; Wt 72.1 kg
[~2019-08-05 11:58] MED LIST changes: +ALBU90OI61 INH; +Duoneb 2.5-0.5 M3 ML NEB; +LACT PO; +METO100ER PO; +Micro-K10 MEQ PO; +OMEP20ER PO; +PRED20 PO; +QUET300 PO; +Vitamin D2000 UNIT PO
[2019-08-05 12:27] LABS: BASOPHILS ABSOLUTE AUTO 0.02 K/mm3 (0.00-0.23); BASOPHILS PERCENT AUTO 0 % (0-2); EOSINOPHILS ABSOLUTE AUTO 0.02 K/mm3 (0.00-0.68); EOSINOPHILS PERCENT AUTO 0 % (0-6); Hematocrit 31.1 % (33.0-51.0); Hemoglobin 10.9 g/dL (11.5-16.0); IMMATURE GRAN ABSOLUTE AUTO 0.07 K/mm3 (0.00-0.10); IMMATURE GRAN PERCENT AUTO 1 % (0-1); LYMPHOCYTES PERCENT AUTO 8 % (21-46); MONOCYTES ABSOLUTE AUTO 0.74 K/mm3 (0.16-1.47); MONOCYTES PERCENT AUTO 7 % (4-13); Mean Corpuscular HGB 34.6 pg (26.0-34.0); Mean Corpuscular Volume 99 fL (80-100); Mean Platelet Volume 10.5 fL (9.1-12.4); NEUTROPHILS ABSOLUTE AUTO 9.25 K/mm3 (1.96-9.15); NEUTROPHILS PERCENT AUTO 84 % (41-73); Platelet Count 274 K/mm3 (150-400); RDW Coefficient Variation 15.2 % (11.7-14.2); RDW Standard Deviation 54.1 fL (35.1-46.3); Red Blood Cell Count 3.15 M/mm3 (3.80-5.20)
[2019-08-05 12:40] LABS: Troponin I <0.015 ng/mL (0.000-0.040)
[2019-08-05 12:43] LABS: Alanine Aminotransfer (ALT/SGP 102 U/L (12-78); Albumin, Blood 3.1 g/dL (3.4-5.0); Albumin/Globulin Ratio 1.1 (0.8-1.8); Alk Phos 146 U/L (50-136); Anion Gap 14 mmol/L (6-16); Aspartate Aminotrans (AST/SGOT 361 U/L (12-37); Blood Urea Nitrogen 7 mg/dL (8-24); Bun/Creatinine Ratio 6.8 (12.0-20.0); CO2, Blood 18 mmol/L (21-32); Calcium, Blood 8.3 mg/dL (8.5-10.1); Chloride, Blood 86 mmol/L (98-108); Creatinine, Blood 1.03 mg/dL (0.40-1.00); Globulin, Blood 2.8 g/dL (2.2-4.0); Glomerular Filtration Rate 58 (60-); Glucose, Blood 84 mg/dL (70-99); Potassium, Blood 4.8 mmol/L (3.5-5.5); Sodium, Blood 118 mmol/L (136-145); Total Protein, Blood 5.9 g/dL (6.4-8.2)
[2019-08-05 13:00] LABS: Base Excess Venous -7.4 mmol/L; PCO2 Venous 35 mmHg (38-42); PO2 Venous 171 mmHg (38-42); pH Blood Venous 7.33 (7.34-7.37)
[2019-08-05] MEDS ORDERED: K-Dur10 MEQ PO (16:12)
[2019-08-05] MEDS ORDERED: LISI20 PO (16:12)
[2019-08-05] MEDS ORDERED: MONT10T PO (16:17)
[2019-08-05 16:45] LABS: Source, Urine Clean Catch
[2019-08-05 16:51] LABS: Bilirubin, Urine Neg (Neg); Blood, Urine 1+ (Neg); Glucose Qualitative, Urine Neg (Neg); Ketones, Urine Neg (Neg); Leukocyte Esterase, Urine Neg (Neg); Nitrite, Urine Neg (Neg); Protein, Urine 1+ (Neg); Specific Gravity, Urine 1.015 (1.003-1.022); Urobilinogen, Urine NORM (Normal)
[2019-08-05 16:57] LABS: Appearance, Urine Clear (Clear); Color, Urine Yellow (P-Yellow)
[2019-08-05 17:00] LABS: Bacteria Rare /hpf; Red Blood Cells, Urine Not Seen /hpf (0-2); Squamous Epithelial Cells Few /hpf (Few); White Blood Cells, Urine 0-2 /hpf (0-5)
[2019-08-05 17:06] LABS: Bicarbonate Venous 18.4 mmol/L (24.0-30.0); PCO2 Venous 39.5 mmHg (38-42); PO2 Venous 193 mmHg (38-42); pH Blood Venous 7.28 (7.34-7.37)
[2019-08-05 17:28] LABS: U Amphetamine Screen Not Detected; U Barbituate Screen Not Detected; U Benzodiazapine Screen DETECTED; U Buprenorphine Screen Not Detected; U Cannabinoids Screen Not Detected; U Cocaine Screen Not Detected; U Methadone Screen Not Detected; U Methamphetamine Screen Not Detected; U Opiates Screen Not Detected; U Oxycodone Screen Not Detected; U Phencyclidine Screen Not Detected; U Propoxyphene Screen Not Detected
--- NOTE | 2019-08-05 19:08 | NUR ---
Pt arrived to unit around 183. Pt oriented to self but stated that she was in [place]. Pt seems slightly drowsy and has kept her eyes closed. States that she is having abd pain and is rubbing her abd. LS very wheezy. Biox 97% on 2L per nc. BP elevated. HR tachycardic. Will medicate with one time dose of lopressor per orders. IVF started per orders and Salumedral given per orders. Bed alarm placed. Report given to night RN and care transfered.
[2019-08-05 19:39] LABS: Anion Gap 11 mmol/L (6-16); Blood Urea Nitrogen 6 mg/dL (8-24); Bun/Creatinine Ratio 6.4 (12.0-20.0); CO2, Blood 17 mmol/L (21-32); Calcium, Blood 6.2 mg/dL (8.5-10.1); Chloride, Blood 101 mmol/L (98-108); Creatinine, Blood 0.94 mg/dL (0.40-1.00); Glomerular Filtration Rate >60 (60-); Glucose, Blood 98 mg/dL (70-99); Potassium, Blood 3.4 mmol/L (3.5-5.5); Sodium, Blood 129 mmol/L (136-145)
--- NOTE | 2019-08-06 00:30 | NUR ---
HEART RATE PT CONTINUES TO BE DROWSY. MONITOR SHOWS ST, HR 120's-130's. WIRE BENDER CRISTAL W/ ORDER FOR IV NARCAN, IV LOPRESSOR, AND PO METOPROLOL, SEE EMAR.
[2019-08-06 01:46] LABS: Albumin, Blood 3.1 g/dL (3.4-5.0); Albumin/Globulin Ratio 1.2 (0.8-1.8); BASOPHILS ABSOLUTE AUTO 0.01 K/mm3 (0.00-0.23); BASOPHILS PERCENT AUTO 0 % (0-2); Bilirubin, Total 0.6 mg/dL (0.1-1.0); Calcium, Blood 7.8 mg/dL (8.5-10.1); Creatinine, Blood 1.38 mg/dL (0.40-1.00); EOSINOPHILS PERCENT AUTO 0 % (0-6); Globulin, Blood 2.6 g/dL (2.2-4.0); Hematocrit 27.5 % (33.0-51.0); Hemoglobin 9.4 g/dL (11.5-16.0); IMMATURE GRAN ABSOLUTE AUTO 0.06 K/mm3 (0.00-0.10); IMMATURE GRAN PERCENT AUTO 1 % (0-1); LYMPHOCYTES ABSOLUTE AUTO 0.41 K/mm3 (0.84-5.20); LYMPHOCYTES PERCENT AUTO 6 % (21-46); MONOCYTES ABSOLUTE AUTO 0.18 K/mm3 (0.16-1.47); MONOCYTES PERCENT AUTO 3 % (4-13); Mean Corpuscular HGB 34.1 pg (26.0-34.0); Mean Corpuscular HGB Conc 34.2 g/dL (31.5-36.5); Mean Corpuscular Volume 100 fL (80-100); Mean Platelet Volume 10.9 fL (9.1-12.4); NEUTROPHILS ABSOLUTE AUTO 5.81 K/mm3 (1.96-9.15); NEUTROPHILS PERCENT AUTO 90 % (41-73); Platelet Count 237 K/mm3 (150-400); Potassium, Blood 4.8 mmol/L (3.5-5.5); RDW Coefficient Variation 15.1 % (11.7-14.2); RDW Standard Deviation 53.9 fL (35.1-46.3); Red Blood Cell Count 2.76 M/mm3 (3.80-5.20); Total Protein, Blood 5.7 g/dL (6.4-8.2); White Blood Cell Count 6.47 K/mm3 (4.00-11.30)
--- NOTE | 2019-08-06 02:45 | NUR ---
NON VIOLENT RESTRAINTS CALL TO MD DIAZ W/ ORDERS FOR NONVIOLENT BILAT SWR & RUY CANO D/T PT SCRATCHING AT SELF, PULLING AT LINES, REMOVING 1 PIV, AND ATTEMPTING TO GET OOB. RESTRAINTS APPLIED @ APPROX 0230.
--- NOTE | 2019-08-06 06:41 | NUR ---
SHIFT SUMMARY PT ALERT, ORIENTED TO SELF, INTERMITTENTLY ORIENTED/DISORIENTED TO PLACE AND TIME. PT DROWSY UPON CARE ASSUMPTION, BRIEFLY WAKING AND GOING BACK TO SLEEP. IV NARCAN GIVEN PER FLAME BURNER CRISTAL ORDER @ APPROX 0000. PT THEN IRRITABLE, RESTLESS IN BED, SCRATCHING AT ARMS & FACE, CAUSING LFA TO BLEED & REMOVING 1 PIV. CALL TO MD JOE Abraham/ ORDERS FOR NONVIOLENT BILAT SWR & RUY VEST, APPLIED @ APPROX 0230. PT CONFUSED, CURSING, & CALLING OUT FOR "DADDY!" MULTIPLE TIMES THIS SHIFT. NS GTT INFUSING PER ORDERS. BED ALARM ON. WILL CONTINUE TO MONITOR AND PROVIDE CARE UNTIL REPORT OFF TO DAY SHIFT RN.
--- NOTE | 2019-08-06 17:29 | NUR ---
SHIFT SUMMARY PT ALERT AND ORIENTED TO SELF AND PLACE. VS STABLE. O2 SATS REMAIN ABOVE 90% ON 2L NC. PT YELLING OUT THROUGHOUT SHIFT, PULLING AT RESTRAINTS, AND ATEMPTING TO GET OUT OF BED. RUY VEST AND WRIST RESTRAINTS IN PLACE. PT INCONTINENT OF BLADDER THIS SHIFT. ATTENDS CHANGED NEEDED. PT REPOSITIONED Q2H. WILL CONTINUE TO MONITOR AND REPORT TO ONCOMING RN. BED ALARM ON AND IN LOW POSITION.
--- NOTE | 2019-08-06 21:30 | NUR ---
PT SLEEPING. WILL AROUSE TO VOICE BUT QUICKLY FALLS BACK TO SLEEP. CANNOT GET PT TO ANSWER QUESTIONS OR STAY AWAKE LONG ENOUGH TO TAKE MEDS. HOLDING PO FOR NOW. ON CONTINUOUS OXIMETERY. NO SIGN OF DISTRESS. BED ALARM ARMED FOR SAFETY.
[2019-08-07 04:08] LABS: BASOPHILS ABSOLUTE AUTO 0.02 K/mm3 (0.00-0.23); BASOPHILS PERCENT AUTO 0 % (0-2); EOSINOPHILS PERCENT AUTO 0 % (0-6); Hematocrit 30.2 % (33.0-51.0); Hemoglobin 9.7 g/dL (11.5-16.0); IMMATURE GRAN ABSOLUTE AUTO 0.22 K/mm3 (0.00-0.10); IMMATURE GRAN PERCENT AUTO 1 % (0-1); LYMPHOCYTES PERCENT AUTO 3 % (21-46); MONOCYTES ABSOLUTE AUTO 0.72 K/mm3 (0.16-1.47); MONOCYTES PERCENT AUTO 5 % (4-13); Mean Corpuscular HGB Conc 32.1 g/dL (31.5-36.5); Mean Platelet Volume 10.4 fL (9.1-12.4); NEUTROPHILS ABSOLUTE AUTO 13.98 K/mm3 (1.96-9.15); NEUTROPHILS PERCENT AUTO 91 % (41-73); NRBC ABSOLUTE 0.05 K/mm3 (0.00-0.02); NRBC Auto 0.3 /100 WBC (0.0-0.2); Platelet Count 203 K/mm3 (150-400); RDW Coefficient Variation 15.5 % (11.7-14.2); RDW Standard Deviation 59.6 fL (35.1-46.3); Red Blood Cell Count 2.85 M/mm3 (3.80-5.20); White Blood Cell Count 15.44 K/mm3 (4.00-11.30)
[2019-08-07 04:09] LABS: Mean Corpuscular Volume 106 fL (80-100)
[2019-08-07 04:32] LABS: Albumin/Globulin Ratio 1.1 (0.8-1.8); Bilirubin, Total 0.6 mg/dL (0.1-1.0); Bun/Creatinine Ratio 20.4 (12.0-20.0); Calcium, Blood 7.3 mg/dL (8.5-10.1); Creatinine, Blood 1.47 mg/dL (0.40-1.00); Globulin, Blood 2.7 g/dL (2.2-4.0); Potassium, Blood 6.5 mmol/L (3.5-5.5); Total Protein, Blood 5.7 g/dL (6.4-8.2)
[2019-08-07 05:12] LABS: BASOPHILS ABSOLUTE AUTO 0.03 K/mm3 (0.00-0.23); BASOPHILS PERCENT AUTO 0 % (0-2); EOSINOPHILS PERCENT AUTO 0 % (0-6); Hemoglobin 9.6 g/dL (11.5-16.0); IMMATURE GRAN ABSOLUTE AUTO 0.22 K/mm3 (0.00-0.10); IMMATURE GRAN PERCENT AUTO 1 % (0-1); LYMPHOCYTES PERCENT AUTO 3 % (21-46); MONOCYTES ABSOLUTE AUTO 0.69 K/mm3 (0.16-1.47); MONOCYTES PERCENT AUTO 4 % (4-13); Mean Corpuscular Volume 106 fL (80-100); Mean Platelet Volume 10.5 fL (9.1-12.4); NEUTROPHILS ABSOLUTE AUTO 14.35 K/mm3 (1.96-9.15); NEUTROPHILS PERCENT AUTO 91 % (41-73); NRBC ABSOLUTE 0.04 K/mm3 (0.00-0.02); NRBC Auto 0.3 /100 WBC (0.0-0.2); Platelet Count 195 K/mm3 (150-400); RDW Coefficient Variation 15.5 % (11.7-14.2); RDW Standard Deviation 59.3 fL (35.1-46.3); Red Blood Cell Count 2.82 M/mm3 (3.80-5.20); White Blood Cell Count 15.79 K/mm3 (4.00-11.30)
[2019-08-07 05:24] LABS: PCO2 Arterial 75.7 mmHg (35-45); PO2 Arterial 74.6 mmHg (80-100)
[2019-08-07 05:39] LABS: Albumin, Blood 2.9 g/dL (3.4-5.0); Albumin/Globulin Ratio 1.1 (0.8-1.8); Bilirubin, Total 0.5 mg/dL (0.1-1.0); Bun/Creatinine Ratio 20.1 (12.0-20.0); Calcium, Blood 7.1 mg/dL (8.5-10.1); Creatinine, Blood 1.49 mg/dL (0.40-1.00); Globulin, Blood 2.7 g/dL (2.2-4.0); Total Protein, Blood 5.6 g/dL (6.4-8.2)
[2019-08-07 05:40] LABS: Potassium, Blood 6.6 mmol/L (3.5-5.5)
--- NOTE | 2019-08-07 06:20 | NUR ---
SUMMARY PT HAD BEEN RESPONDING TO NOXIOUS STIMULUS ALL NIGHT AND STILL FIGHTING AGAINST CARE UNTIL 444. NOW PT NOT RESPONDING TO NOXIOUS STIMULUS. HAD ABG DRAWN AND PT HAS CRITICAL CO2 AND PH. PT HAS WEAK GAG. NOT IN RESTRAINTS. CALLED DR. DIAZ TO LET HIM KNOW AND GAVE HIM POTASSIUM RESULTS. PLACED ON BIPAP 16/6 FIO2 35%. NEW ORDERS FOR D50, INSULIN, AND CA GLUCONATE TO BRING POTASSIUM DOWN. WILL HAVE REPEAT ABG AND POTASSIUM LATER. PT IS TOLERATING THE BIPAP FOR NOW. VS HAVE BEEN STABLE.
[2019-08-07 09:01] LABS: PCO2 Arterial 59.1 mmHg (35-45); PO2 Arterial 97.5 mmHg (80-100)
[2019-08-07 13:33] LABS: Source, Urine Catheter
[2019-08-07 13:36] LABS: Bilirubin, Urine Neg (Neg); Blood, Urine 1+ (Neg); Glucose Qualitative, Urine Neg (Neg); Ketones, Urine 1+ (Neg); Leukocyte Esterase, Urine Neg (Neg); Nitrite, Urine Neg (Neg); Protein, Urine 1+ (Neg); Specific Gravity, Urine 1.025 (1.003-1.022); Urobilinogen, Urine NORM (Normal)
[2019-08-07 13:41] LABS: Appearance, Urine Clear (Clear); Color, Urine Yellow (P-Yellow)
[2019-08-07 13:43] LABS: Red Blood Cells, Urine 0-2 /hpf (0-2); Squamous Epithelial Cells Not Seen /hpf (Few); White Blood Cells, Urine 0-2 /hpf (0-5)
[2019-08-07 13:44] LABS: Bacteria Rare /hpf
[2019-08-07 13:45] LABS: Yeast/Fungi Urine Mod /hpf
--- NOTE | 2019-08-07 17:47 | NUR ---
SHIFT SUMMARY PT RESPONDING TO PAINFUL STIMULI. ABG CRITICAL THIS AFTERNOON AND DR. CARNEY AWARE. PT HAS BEEN ON BIPAP ALL SHIFT WITH FIO2 OF 30%. PT DESATURATES QUICKLY WHEN BIPAP REMOVED. HR REMAINS SINUS TACH. BP STABLE. PT ATTEMPTING TO PULL AT BIPAP AND LINES. SORENSEN CATHETER PLACED THIS SHIFT DUE TO RETENTION. PT REPOSITIONED Q2H AND NEEDED. POTASSIUM NORMALIZED THIS SHIFT. NS INFUSING PER ORDERS. WILL CONTINUE TO MONITOR CLOSELY AND REPORT TO ONCOMING RN. BED ALARM ON.
--- NOTE | 2019-08-07 18:04 | NUR ---
PT LETHARGIC THROUGHOUT SHIFT. WILL RESPOND TO VERBAL AND NOXIOUS STIMULI. PT HAD CRITICAL LAB VALUES, ABG PH OF 7.10 AND K+ AT 6.1. K+ LOWERED TO 5.4 AT 1300. PT IS SINUS TACH WITH T WAVE ELEVATION. BLOOD PRESSURE REMAINS STABLE. PT HAD A SORENSEN CATHETER PLACED DUE TO URINARY RETENTION. PT TOLERATED THE PROCEDURE WELL. PT APPEARS ANXIOUS AND CONTINUES TO PULL AT BIPAP MASK AND TUBING. NORMAL SALINE RUNNING AT 75 ML/HR. WILL CONTINUE TO MONITOR.
[2019-08-08 04:33] LABS: BASOPHILS ABSOLUTE AUTO 0.01 K/mm3 (0.00-0.23); BASOPHILS PERCENT AUTO 0 % (0-2); EOSINOPHILS PERCENT AUTO 0 % (0-6); Hematocrit 30.5 % (33.0-51.0); Hemoglobin 9.9 g/dL (11.5-16.0); IMMATURE GRAN ABSOLUTE AUTO 0.09 K/mm3 (0.00-0.10); IMMATURE GRAN PERCENT AUTO 1 % (0-1); LYMPHOCYTES ABSOLUTE AUTO 0.13 K/mm3 (0.84-5.20); LYMPHOCYTES PERCENT AUTO 1 % (21-46); MONOCYTES ABSOLUTE AUTO 0.43 K/mm3 (0.16-1.47); MONOCYTES PERCENT AUTO 4 % (4-13); Mean Corpuscular HGB 34.4 pg (26.0-34.0); Mean Corpuscular HGB Conc 32.5 g/dL (31.5-36.5); Mean Corpuscular Volume 106 fL (80-100); Mean Platelet Volume 10.8 fL (9.1-12.4); NEUTROPHILS ABSOLUTE AUTO 9.67 K/mm3 (1.96-9.15); NEUTROPHILS PERCENT AUTO 94 % (41-73); NRBC ABSOLUTE 0.05 K/mm3 (0.00-0.02); NRBC Auto 0.5 /100 WBC (0.0-0.2); Platelet Count 120 K/mm3 (150-400); RDW Coefficient Variation 16.1 % (11.7-14.2); RDW Standard Deviation 61.9 fL (35.1-46.3); Red Blood Cell Count 2.88 M/mm3 (3.80-5.20); White Blood Cell Count 10.33 K/mm3 (4.00-11.30)
--- NOTE | 2019-08-08 04:48 | NUR ---
SHIFT SUMMARY PT SLEEPING IN ROOM COMFORTABLY AT THIS TIME. NO ACUTE CHANGES IN PT STATUS T/O NIGHT. PT REMAINED OBTUNDED T/O NIGHT. OPENS EYES TO SOUND AND PAINFUL STIMULI. PT DRAWS AWAY FROM PAINFUL STIMULI, AND OPENS EYES, BUT DOES NOT TRACK. EYES WERE NOTED TO HAVE SWELLING TO CONJUNCTIVA BILATERALLY. PT UNABLE TO FULLY SHUT EYES D/T SWELLING. WILL ADDRESS W/ DAY SHIFT RN TO PASS TO HOSPITALIST. PT WORE BIPAP T/O NIGHT TOLERATED WELL. RESP EVEN AND TACHY ON BIPAP W/ SATS >92%. PT OCCASIONALLY MOVES ARMS ON OWN AND HITS BIPAP. SORENSEN CATH IN PLACE DRAINING TO GRAVITY. NS INFUSING IN PIV AT 75ML/HR. CALL LIGHT IN REACH. BED ALARM ON.
[2019-08-08 04:58] LABS: Albumin, Blood 3.2 g/dL (3.4-5.0); Albumin/Globulin Ratio 1.2 (0.8-1.8); Bilirubin, Total 0.9 mg/dL (0.1-1.0); Bun/Creatinine Ratio 27.5 (12.0-20.0); Calcium, Blood 8.3 mg/dL (8.5-10.1); Creatinine, Blood 1.09 mg/dL (0.40-1.00); Globulin, Blood 2.6 g/dL (2.2-4.0); Total Protein, Blood 5.8 g/dL (6.4-8.2)
[2019-08-08 05:36] LABS: PCO2 Arterial 39.9 mmHg (35-45); PO2 Arterial 95.4 mmHg (80-100)
[2019-08-08 05:37] LABS: pH Blood Arterial 7.29 (7.35-7.45)
--- NOTE | 2019-08-08 12:11 | NUR ---
Spiritual care visit conducted. Patient is lying in bed and flailing her arems. I remind patient who I am (patient is known to me from previous hospital stays). Patient looks at me when I talk but does not speak. I ask patient if I could pray for her and she appears to nod her head affirmingly (I was not sure she was undeerstanding or agreeing but patient has always appreciated prayer in the past). I provided prayer and a calming presence. The visit did not appear to create any change in patient's condition or appearance. I will continue to remain available to patient and family.
--- NOTE | 2019-08-08 16:30 | NUR ---
PT REMAINS LETHARGIC. PT RESPONDS TO VERBAL AND NOXIOUS STIMULI. PT HAD TWO SMALL BLACK/GREEN BM'S. PT HAS SORENSEN TO GRAVITY DRAIN WITH CLEAR, YELLOW URINE. PT IS TOLERATING BIPAP AT 25% FIO2. PT REMAINS TACHYCARDIC AND HYPERTENSIVE, WITH IV METOPROLOL GIVEN PRN AND SCHEDULED. PT HAS A FREQUENT WEAK COUGH WITH SUCTION NEEDED. PT HAD A POWER GLIDE INSERTED IN THE UPPER LEFT ARM DUE TO FAILED PERIPHERAL IV LINES. CALL LIGHT WITHIN REACH, WILL CONTINUE TO MONITOR.
--- NOTE | 2019-08-08 18:22 | NUR ---
SHIFT SUMMARY PT REMAINS OBTUNDED. PT RESPONDING TO VERBAL STIMULI BY OPENING EYES, BUT EYES ARE NOT TRACKING. HR HAS BEEN SINUS TACH THIS SHIFT. METOPROLOL HAS BEEN CHANGED TO IV SINCE PT IS UNABLE TO TAKE ORAL MEDICATIONS SAFELY AT THIS TIME. BP ELEVATED THIS AFTERNOON AND PT MEDICATED ORDERED. PT HAS BEEN ON BIPAP ALL SHIFT WITH SHORT BREAKS FOR ORAL CARE. SORENSEN PATENT AND DRAINING CLEAR YELLOW URINE. PT REPOSITIONED Q2H AND NEEDED. PT HAD TWO INCONTINENT BM THIS SHIFT. WILL CONTINUE TO MONITOR AND REPORT TO ONCOMING RN. BED ALARM ON.
--- NOTE | 2019-08-09 04:30 | NUR ---
SHIFT SUMMARY PT LETHARGIC; MOVES LEGS & ARMS FREELY; MOANS & RESPONDS TO PAIN STIMULUS; SORENSEN DRAINING YELLOW; VSS; IV METOPROLOL GIVEN PER EMAR; HR REMAINED 100-127 THIS SHIFT; O2 SATS >93 ON BIPAP 25% FIO2; PT HAD INCONTINENT BM 1X THIS SHIFT; PO MEDS HELD; PT ROOM IN FRONT OF NURSES STATION; BED IN LOWEST POSITION; CALL LIGHT IN REACH; WILL CONTINUE TO MONITOR CLOSELY UNTIL HAND OFF TO DAY SHIFT RN.
[2019-08-09 05:46] LABS: Alanine Aminotransfer (ALT/SGP 87 U/L (12-78); Albumin/Globulin Ratio 1.1 (0.8-1.8); Alk Phos 133 U/L (50-136); Anion Gap 10 mmol/L (6-16); Aspartate Aminotrans (AST/SGOT 61 U/L (12-37); Bilirubin, Total 0.7 mg/dL (0.1-1.0); Blood Urea Nitrogen 26 mg/dL (8-24); Bun/Creatinine Ratio 29.5 (12.0-20.0); CO2, Blood 20 mmol/L (21-32); Calcium, Blood 8.5 mg/dL (8.5-10.1); Chloride, Blood 108 mmol/L (98-108); Creatinine, Blood 0.88 mg/dL (0.40-1.00); Globulin, Blood 2.7 g/dL (2.2-4.0); Glomerular Filtration Rate >60 (60-); Glucose, Blood 99 mg/dL (70-99); Magnesium, Blood 2.6 mg/dL (1.6-2.4); Potassium, Blood 4.8 mmol/L (3.5-5.5); Sodium, Blood 138 mmol/L (136-145); Total Protein, Blood 5.7 g/dL (6.4-8.2)
--- NOTE | 2019-08-09 07:32 | NUR ---
ASSUMED CARE AT 0700, REPORT FROM NAV BAKER. LAYING SUPINE IN BED AT 30 DEGREE INCLINE, BIPAP IN PLACE. 25% FIO2. MOANS AND RETRACTS ARMS WHEN BIPAP MASK ADJUSTED. SORENSEN IN PLACE DRAINING CLEAR YELLOW URINE.
--- NOTE | 2019-08-09 08:33 | NUR ---
BIPAP REMOVED PER DR. CARNEY, PLACED ON 3L 02 VIA NC. AGITATED AND PULLING AT LINES WHEN REMOVING BIPAP MASK. WILL CONTINUE TO MONITOR. DISCUSSED HEART RATE WITH DR. CARNEY. CURRENT RATE 123. WILL EVALUATE FOR PO MEDS FOR RATE CONTROL PER DR. CARNEY.
--- NOTE | 2019-08-09 10:17 | NUR ---
SPOKE WITH DR. CARNEY REGARDING PO MED ORDERS. PT UNABLE TO FOLLOW INSTRUCTIONS AT THIS TIME TO SWALLOW PILLS. MOVES AROUND ON GURNEY, REPOSITIONS, MOANS WHEN TOUCHED. WILL CONTINUE TO TREAT WITH IV LOPRESSOR Q6 FOR HEART RATE PER DR. CARNEY. WILL CONTINUE TO MONITOR.
--- NOTE | 2019-08-09 18:20 | NUR ---
SHIFT SUMMARY; REMOVED FROM BIPAP THIS AM PER ORDERS, PLACED ON 3L O2 NC, TOLERATED WELL THROUGHOUT THE DAY. OPENS EYES TO VERBAL STIMULI AND GETS AGITATED WITH TOUCH, REPOSITIONS IN BED. SORENSEN CATH IN PLACE DRAINING CLEAR YELLOW URINE. Q 2 HOURS TURNS THROUGHOUT DAY. NPO THROUGHOUT SHIFT, IF CONTINUES TO BECOME MORE ALERT POSSIBLE SPEECH EVAL TOMORROW PER PROVIDER. WILL CONTINUE TO MONITOR UNTIL SHIFT CHANGE.
--- NOTE | 2019-08-09 20:18 | NUR ---
CARE ASSUMPTION PT DROWSY, OPENS EYES TO VERBAL STIMULATION W/ TOUCH THEN QUICKLY CLOSES THEM AND GOES BACK TO SLEEP. PT INTERMITTENTLY CALLING OUT "DADDY!" OR "GRACIE!" AND MOANING. MONITOR SHOWS ST, HR 110's-120's. PRN IV LOPRESSOR GIVEN PER EMAR. SPO2 > 92% ON 2L NC. BIPAP AT BEDSIDE. BED ALARM ON. SORENSEN CATH PATENT AND DRAINING. WILL CONTINUE TO MONITOR AND PROVIDE CARE.
[2019-08-10 04:55] LABS: Alanine Aminotransfer (ALT/SGP 70 U/L (12-78); Albumin, Blood 2.9 g/dL (3.4-5.0); Albumin/Globulin Ratio 1.1 (0.8-1.8); Alk Phos 112 U/L (50-136); Anion Gap 13 mmol/L (6-16); Aspartate Aminotrans (AST/SGOT 42 U/L (12-37); Bilirubin, Total 0.6 mg/dL (0.1-1.0); Blood Urea Nitrogen 19 mg/dL (8-24); Bun/Creatinine Ratio 26.4 (12.0-20.0); CO2, Blood 20 mmol/L (21-32); Calcium, Blood 8.4 mg/dL (8.5-10.1); Chloride, Blood 113 mmol/L (98-108); Creatinine, Blood 0.72 mg/dL (0.40-1.00); Globulin, Blood 2.6 g/dL (2.2-4.0); Glomerular Filtration Rate >60 (60-); Glucose, Blood 110 mg/dL (70-99); Potassium, Blood 4.3 mmol/L (3.5-5.5); Sodium, Blood 146 mmol/L (136-145); Total Protein, Blood 5.5 g/dL (6.4-8.2)
--- NOTE | 2019-08-10 06:02 | NUR ---
SHIFT SUMMARY NO CHANGES OR EVENTS THIS SHIFT. VSS. MONITOR SHOWS ST, HR 100-120's. IV LOPRESSOR GIVERN PER EMAR. SPO2 > 92% ON 1L NC. PT REFUSING BIPAP, NOT WEARING BIPAP THIS SHIFT. BED ALARM ON. WILL CONTINUE TO MONITOR AND PROVIDE CARE UNTIL REPORT OFF TO DAY SHIFT RN.
--- NOTE | 2019-08-10 07:13 | NUR ---
ASSUMED CARE AT THIS TIME, REPORT FROM JESSENIA. RESTING IN BED SUPINE. 1L 02 VIA NC, OPENS EYES TO VOICE, DOES NOT ANSWER QUESTIONS OR FOLLOW INSTRUCTIONS. REPOSITIONS IN BED. WILL CONTINUE TO MONITOR.
--- NOTE | 2019-08-10 17:44 | NUR ---
SHIFT ASSESMENT; LETHARGIC DURING SHIFT. MOANS AND SCOOTER OUT WHEN TOUCHED, DOES NOT FOLLOW COMMANDS. NO ACUTE CHANGES FROM YESTERDAY. 02 VIA NC 1L. PALLATIVE CARE SPOKE WITH FAMILY REGARDING FUTURE DECISIONS, AGRESSIVE CARE VS. COMFORT CARE. FAMILY TO ROOM TO VISIT. WILL DISCUSS WITH DR. CARNEY AFTER FAMILY MEETING. Q2 TURNS MAINTAINED THROUGHOUT SHIFT. SORENSEN CATH IN PLACE DRAINING CLEAR YELLOW URINE. WILL CONTINUE TO MONITOR UNTIL SHIFT CHANGE.
--- NOTE | 2019-08-10 21:12 | NUR ---
met with patients sons to review pt prognosis.
[2019-08-11 05:06] LABS: BASOPHILS ABSOLUTE AUTO 0.01 K/mm3 (0.00-0.23); BASOPHILS PERCENT AUTO 0 % (0-2); EOSINOPHILS PERCENT AUTO 0 % (0-6); Hemoglobin 8.5 g/dL (11.5-16.0); IMMATURE GRAN ABSOLUTE AUTO 0.15 K/mm3 (0.00-0.10); IMMATURE GRAN PERCENT AUTO 2 % (0-1); LYMPHOCYTES ABSOLUTE AUTO 0.27 K/mm3 (0.84-5.20); LYMPHOCYTES PERCENT AUTO 3 % (21-46); MONOCYTES ABSOLUTE AUTO 0.32 K/mm3 (0.16-1.47); MONOCYTES PERCENT AUTO 4 % (4-13); Mean Corpuscular HGB Conc 30.4 g/dL (31.5-36.5); Mean Platelet Volume 11.5 fL (9.1-12.4); NEUTROPHILS ABSOLUTE AUTO 7.26 K/mm3 (1.96-9.15); NEUTROPHILS PERCENT AUTO 91 % (41-73); NRBC ABSOLUTE 0.13 K/mm3 (0.00-0.02); NRBC Auto 1.6 /100 WBC (0.0-0.2); Platelet Count 120 K/mm3 (150-400); RDW Coefficient Variation 17.8 % (11.7-14.2); White Blood Cell Count 8.01 K/mm3 (4.00-11.30)
[2019-08-11 05:17] LABS: PCO2 Arterial 38.6 mmHg (35-45); PO2 Arterial 76.6 mmHg (80-100); pH Blood Arterial 7.34 (7.35-7.45)
[2019-08-11 05:22] LABS: Mean Corpuscular Volume 112 fL (80-100)
[2019-08-11 05:41] LABS: Magnesium, Blood 2.8 mg/dL (1.6-2.4)
[2019-08-11 05:45] LABS: Alanine Aminotransfer (ALT/SGP 59 U/L (12-78); Albumin, Blood 3.2 g/dL (3.4-5.0); Albumin/Globulin Ratio 1.3 (0.8-1.8); Alk Phos 111 U/L (50-136); Anion Gap 13 mmol/L (6-16); Aspartate Aminotrans (AST/SGOT 33 U/L (12-37); Bilirubin, Total 0.6 mg/dL (0.1-1.0); Blood Urea Nitrogen 20 mg/dL (8-24); Bun/Creatinine Ratio 26.1 (12.0-20.0); CO2, Blood 20 mmol/L (21-32); Calcium, Blood 9.1 mg/dL (8.5-10.1); Chloride, Blood 115 mmol/L (98-108); Creatinine, Blood 0.77 mg/dL (0.40-1.00); Globulin, Blood 2.5 g/dL (2.2-4.0); Glomerular Filtration Rate >60 (60-); Glucose, Blood 113 mg/dL (70-99); Phosphorus, Blood 2.1 mg/dL (2.5-4.9); Sodium, Blood 148 mmol/L (136-145); Total Protein, Blood 5.7 g/dL (6.4-8.2)
--- NOTE | 2019-08-11 06:39 | NUR ---
SHIFT SUMMARY PT LETHARGIC. OPENS EYES TO VERBAL STIMULATION W/ TOUCH THEN GOES BACK TO SLEEP. MONITOR SHOWS ST, HR 100-120's. BP ELEVATED, OTHERWISE VSS. PRN IV HYDRALAZINE GIVEN X1 THIS SHIFT INEFFECTIVE IN LOWERING BP. PT TOLERATING BIPAP MAJORITY OF SHIFT W/ BIPAP SETTINGS 16/6, FIO2 25% OR 1L NC. PT NPO. SORENSEN CATH PATENT AND DRAINING. Q2H REPOSITIONING W/ MAX ASSIST BY 2 STAFF. PALLIATIVE CARE RN AT BEDSIDE CONVERSING W/ FAMILY UPON CARE ASSUMPTION THIS SHIFT. FAMILY TO FURTHER DISCUSS PLAN FOR PT AGAIN TODAY. PT BECOMING MORE ALERT, OPENING EYES FOR LONGER PERIODS THIS AM. WILL CONTINUE TO MONITOR AND PROVIDE CARE UNTIL REPORT OFF TO DAY SHIFT RN.
--- NOTE | 2019-08-11 11:41 | NUR ---
Spiritual care visit conducted. Patientis lying in bed and alert. Patient follows me closely with her eyes but not speak or even motion when I ask questions. The only time she spoke was when I asked her if I could say a prayer for her. She said, "Yes" and nodded affirmingly. I gladly provided prayer. Patient closed her eyes during the prayer and opened them when I concluded but did not respond again to any other questions.
[2019-08-11 18:13] LABS: PCO2 Arterial 56.3 mmHg (35-45); PO2 Arterial 74.9 mmHg (80-100); pH Blood Arterial 7.27 (7.35-7.45)
--- NOTE | 2019-08-11 18:36 | NUR ---
PCU DAYSHIFT SUMMARY PATIENT UNRESPONSIVE T/O SHIFT - NO MEANINGFUL COMMUNICATION AND NO VERBAL COMMUNICATION. PATIENT DOES NOT FOLLOW DIRECTIONS. Q2 TURN MAX ASSIT 2 PERSON. PATIENT HAS MULTIPLE SKIN TEARS AND BRUISING NOTED ON EXTREMETIES, ABD AND CHEST. PATIENT HAS BEEN ON BIPAP FOR ALL OF SHIFT, EXCEPT 2 HOURS - ABG OBTAINED POST 2 HOURS - CRITICAL PH REPORTED TO MD CARNEY - BIPAP PLACED BACK ON PATIENT. NG TUBE PLACED FOR MEDICATION ADMINISTRATION AND VERIFIED OKAY TO USE PER XRAY. PATIENT TACHYCARDIC AND HYPERTENSIVE T/O SHIFT - REPORTED TO MD CARNEY - UNCHANGED WITH MEDICATIONS PER EMAR. NO ACUTE CHANGES NOTED THIS SHIFT - PATIENT CONTINUES TO DECLINE WITH NO IMPROVEMENTS NOTED. WILL CONTINUE TO MONITOR AND GIVE REPORT TO NOC SHIFT RN.
--- NOTE | 2019-08-11 19:15 | NUR ---
DOBHOFF DOBHOFF PLACED - 57 CM TO NOSTREL. CONFIRMED WITH XRAY.
--- NOTE | 2019-08-11 20:19 | NUR ---
review of plan of care and prognosis with physician and manager care management. pt not appropriate to return to her home.
[2019-08-12 03:47] LABS: BASOPHILS ABSOLUTE AUTO 0.04 K/mm3 (0.00-0.23); BASOPHILS PERCENT AUTO 0 % (0-2); EOSINOPHILS PERCENT AUTO 0 % (0-6); Hematocrit 29.3 % (33.0-51.0); IMMATURE GRAN ABSOLUTE AUTO 0.71 K/mm3 (0.00-0.10); IMMATURE GRAN PERCENT AUTO 5 % (0-1); LYMPHOCYTES ABSOLUTE AUTO 0.64 K/mm3 (0.84-5.20); LYMPHOCYTES PERCENT AUTO 4 % (21-46); MONOCYTES ABSOLUTE AUTO 1.53 K/mm3 (0.16-1.47); MONOCYTES PERCENT AUTO 10 % (4-13); Mean Corpuscular HGB 34.2 pg (26.0-34.0); Mean Corpuscular HGB Conc 30.7 g/dL (31.5-36.5); Mean Corpuscular Volume 111 fL (80-100); Mean Platelet Volume 11.3 fL (9.1-12.4); NEUTROPHILS ABSOLUTE AUTO 12.45 K/mm3 (1.96-9.15); NEUTROPHILS PERCENT AUTO 81 % (41-73); NRBC ABSOLUTE 0.27 K/mm3 (0.00-0.02); NRBC Auto 1.8 /100 WBC (0.0-0.2); Platelet Count 121 K/mm3 (150-400); RDW Coefficient Variation 18.1 % (11.7-14.2); RDW Standard Deviation 73.6 fL (35.1-46.3); Red Blood Cell Count 2.63 M/mm3 (3.80-5.20); White Blood Cell Count 15.37 K/mm3 (4.00-11.30)
[2019-08-12 04:08] LABS: Anion Gap 6 mmol/L (6-16); Blood Urea Nitrogen 30 mg/dL (8-24); Bun/Creatinine Ratio 45.7 (12.0-20.0); CO2, Blood 27 mmol/L (21-32); Calcium, Blood 8.7 mg/dL (8.5-10.1); Chloride, Blood 114 mmol/L (98-108); Creatinine, Blood 0.66 mg/dL (0.40-1.00); Glomerular Filtration Rate >60 (60-); Glucose, Blood 204 mg/dL (70-99); Magnesium, Blood 2.9 mg/dL (1.6-2.4); Phosphorus, Blood 2.4 mg/dL (2.5-4.9); Sodium, Blood 147 mmol/L (136-145); Triglycerides 449 mg/dL (30-160)
--- NOTE | 2019-08-12 06:01 | NUR ---
END OF SHIFT SUMMARY NO ACUTE CHANGES THIS SHIFT. PT STILL PRESEWNTS OBTUNDED BUT HAS OPENED EYES A FEW TIMES THIS SHIFT, EYES NOTRACKING. PT HAS REMAINED ON BIPAP ALL SHIFT, SETTINGS 16/6, FIO2 TITRATED FROM 20% TO 40% AT DIFFERENT PERIODS IN THE SHIFT TO MEET O2 DEMAND. ORAL CARE PROVIDED MULTIPLE TIMES THIS SHIFT. PT BEING TURNED/REPOSITOINED BY STRAFF. PT REMAINS WITH HTN. HTN AND TACHYCARDIA HAS LESSENED AND IMPROVED DURING THE SHIFT. STILL RECEIVING LOPRESSOR 5 PUSHES BUT SBP WAS <140 AT ONE TIME AND HR <100 WELL[address] DO[address]OFF REMAINS IN PLACE, PATENT AND FLUSHING EASILY. PT DISPLAYS BLE MOTTLING BUT EXT'S WARM TOTOUCH AND HAS STRONG PEDAL PULSES. POWERGLIDE NOT DRAWING BLOOD THIS SHIFT, HAVE NOT BEEN ABLE TO REDRESS LINE AT THIS TIME. OTHERWISE, PT HAS BEEN ASLEEP QUIETLY IN ROOM. WILL CONTINUE TO MONITOR UNTIL SHIFT CHANGE.
--- NOTE | 2019-08-12 13:38 | NUR ---
UPDATE NOTE PATIENT MINIMALLY TO NONRESPONSIVE - WILL OPEN EYES TO STERNAL RUB BUT DOES NOT TRACK, NONVERBAL AND DOES NOT FOLLOW DIRECTION. DOLL EYES NOTED - ORBITAL SWELLING NOTED - PUPILS SLUGGISH. BIPAP IN PLACE T/O SHIFT. REMOVED BIPAP FOR ORAL CARE - PATIENT DOES NOT TOLERATE ORAL CARE WELL - HOLDS LIPS CLOSED TIGHTLY. MD CARNEY UPDATED ON FINDINGS. MD CARNEY NOTIFIED THIS RN THAT SHE HAD DISCUSSED PATIENT CONDITION WITH HER DAUGHTER, JERSON, AND SISTER, GEENA. PATIENTS SISTER, GEENA, HERE TO VISIT PATIENT - NO CHANGE IN RESPONSIVENESS NOTED FROM PATIENT. CONTINUOUS BIOX IN PLACE, HEART MONITOR IN PLACE AND BIPAP IN PLACE.
--- NOTE | 2019-08-12 16:28 | NUR ---
SPOKE WITH PATIENTS DAUGHTER, JERSON SPOKE WITH DAUGHTER REGARDING PATIENT CONDITION. DISCUSSED THAT PATIENT HAS REMAIN UNCHANGED ON THE BIPAP. NOTIFIED DAUGHTER THAT PATIENT HAS REMAINED NONVERBAL WITH NO MEANINGFUL MOVEMENTS OR COMMUNICATION NOTED. NOTIFIED DAUGHTER THAT PATIENT DOES RESPOND TO PAINFUL STIMULI. DAUGHTER STATED THAT HER MOTHER WOULD WISH TO HAVE MORE TIME IN HOPES OF A MIRCLE THAT SHE RECOVERS. DISCUSSED CONVERSATION WITH MD CARNEY. DAUGHTER STATED THAT HERSELF AND HER 3 BROTHERS SHOULD BE COMING TO VISIT TOMORROW.
--- NOTE | 2019-08-12 18:43 | NUR ---
PCU DAYSHIFT SUMMARY NO IMPROVEMENT NOTED THIS SHIFT. PATIENT REMAINED ON BIPAP T/O SHIFT - REMAINED NONVERBAL WITH NO MEANINGFUL COMMUNICATION. PATIENT CONTINUES TO REFUSE ORAL CARE - NOT OPENING MOUTH AND TURNING HEAD SIDE TO SIDE. PATIENT WILL OPEN EYES TO PAINFUL STIMULI AND MOAN. SORENSEN CATH IN PLACE. PATIENT REMAIN HYPERTENSIVE T/O SHIFT IN SINUS TACH. WILL CONTINUE TO MONITOR AND REPORT TO NOC SHIFT RN.
[2019-08-13 04:30] LABS: Hemoglobin 8.7 g/dL (11.5-16.0); Mean Corpuscular HGB Conc 31.1 g/dL (31.5-36.5); Mean Corpuscular Volume 109 fL (80-100); Mean Platelet Volume 11.7 fL (9.1-12.4); NRBC ABSOLUTE 0.39 K/mm3 (0.00-0.02); NRBC Auto 2.2 /100 WBC (0.0-0.2); Platelet Count 111 K/mm3 (150-400); RDW Coefficient Variation 17.5 % (11.7-14.2); RDW Standard Deviation 69.9 fL (35.1-46.3); Red Blood Cell Count 2.56 M/mm3 (3.80-5.20); White Blood Cell Count 17.46 K/mm3 (4.00-11.30)
[2019-08-13 04:46] LABS: Alanine Aminotransfer (ALT/SGP 42 U/L (12-78); Albumin, Blood 2.7 g/dL (3.4-5.0); Alk Phos 100 U/L (50-136); Anion Gap 7 mmol/L (6-16); Aspartate Aminotrans (AST/SGOT 24 U/L (12-37); Bilirubin, Total 0.8 mg/dL (0.1-1.0); Blood Urea Nitrogen 31 mg/dL (8-24); Bun/Creatinine Ratio 48.7 (12.0-20.0); CO2, Blood 27 mmol/L (21-32); Calcium, Blood 8.6 mg/dL (8.5-10.1); Chloride, Blood 114 mmol/L (98-108); Creatinine, Blood 0.64 mg/dL (0.40-1.00); Globulin, Blood 2.6 g/dL (2.2-4.0); Glomerular Filtration Rate >60 (60-); Glucose, Blood 148 mg/dL (70-99); Potassium, Blood 3.9 mmol/L (3.5-5.5); Sodium, Blood 148 mmol/L (136-145); Total Protein, Blood 5.3 g/dL (6.4-8.2)
[2019-08-13 05:30] LABS: BAND PERCENT MAN 1 % (0-8); BASOPHILS PERCENT MAN 0 % (0-2); EOSINOPHILS PERCENT MAN 0 % (0-6); LYMPHOCYTES ABSOLUTE MAN 1.74 K/mm3 (0.84-5.20); LYMPHOCYTES PERCENT MAN 10 % (21-46); METAMYELOCYTE ABSOLUTE MAN 0.69 K/mm3 (0.00-0.00); METAMYELOCYTE PERCENT MAN 4 % (0-0); MONOCYTES ABSOLUTE MAN 1.22 K/mm3 (0.16-1.47); MONOCYTES PERCENT MAN 7 % (4-13); MYELOCYTE ABSOLUTE MAN 0.17 K/mm3 (0.00-0.00); MYELOCYTE PERCENT MAN 1 % (0-0); NEUTROPHILS ABSOLUTE MAN 13.61 K/mm3 (1.96-9.15); SEG NEUTROPHILS PERCENT MAN 77 % (41-73); TOTAL CELLS COUNTED 100
--- NOTE | 2019-08-13 06:49 | NUR ---
END OF SHIFT SUMMARY BEGINNING OF SHIFT PT LETHARGIC, NONRESPONSIVE EXCEPT TO PAINFUL STIMULI. FAMILY IN ROOM, PT NONRESPONSIVE TO THEM. EYES NONTRACKING. ON BIPAP WITH SHALLOW BREATHING. IN SR, HTN REQUIRING SCHEDULED AND PRN IV LOPRESSOR PUSHES. VOIDING INTO URINAL. DOBHOFF IN PLACE, CLOGGED BUT UNCLOGGED BY THIS RN. PT BEING TURNED BY STAFF. PT NOTED TO BE LEAKING AROUNF FOELY. ATTEMPTS TO RECTIFY THISHAVE BEEN UNSUCCESFUL. PT POSSIBLY NEEDS LARGER SORENSEN. PT HAS FULLY SATURATED HER ATTENDS. POWERGLIDE FLUSHES EASILY BUT DOES NOT DRAW BLOOD. END OF SHIFT AROUND 0300, PT OPENED EYES TO THIS RN AND ASKED "CAN I HAVE SOME WATER" "I AM AT THE HOSPITAL". UPON GETTING SOME MOUTH SWABS, PT BACK TO BEING NONCOMPLIANT, CLENCHING TEETH TO PREVENT SWAB AND NONRESPONSIVE VERBALLY. AROUND 0430, PT BEGINS TO YELL OUT. ASKING TO GO TO HOSPITAL. YELLING FOR HER . 0500, PT BEGINNING TO STATE NEEDS SUCH BACK PAIN. STILL COMNFUSED IN MOST ASPECTS BUT IS SHOWING INCREASED RESPONSES. PT HAS TOLERATED BEING OFF OF BIPAP FOR BREAKS. DOBHOFF CONTINUES TO BE SECURED IN PLACE. PT CONTINUING TO BE TURNED BY STAFF. PT SHOWING COMPLAINTS OF R ARM PAIN TO MOVEMENT AND C/O STOMACH PAIN. TYLENOL UNSUCCESFUL PER PT REPORT AT THIS TIME FOR MANAGING THIS PAIN. WILL CONTINUE TO MONITOR UNTIL SHIFT CHANGE.
[2019-08-13 12:27] LABS: PCO2 Arterial 54.1 mmHg (35-45); PO2 Arterial 130 mmHg (80-100); pH Blood Arterial 7.35 (7.35-7.45)
--- NOTE | 2019-08-13 18:13 | NUR ---
PCU DAYSHIFT SUMMARY PATIENT ALERT AND ORIENTED TO SELF AND LOCATIONS - CONFUSED TO SITUATION AND TIME/DATE. PATIENT DROWSY T/O SHIFT BUT AWAKES AND DOES MAKE EYE CONTACT AND FOLLOWS SOME DIRECTIONS. BUE WEAK WITH FULL RANGE OF MOTION NOTED, RIGHT ARM WEAKER THAN LEFT. PATIENT ON BEDREST T/O SHIFT, WORKED WITH PT/OT/ST. PATIENT ON 2 LPM NC WHEN NOT ON BIPAP. ABG OBTAINED WHILE PATIENT ON 2 LPM NC. PATIENT TIRES EASILY WITH BED EXERCISES AND TURNING. HR NS TO ST T/O SHIFT 80-110'S. NO ACUTE CHANGES T/O SHIFT. PATIENT SISTER AND NIECE CAME TO VISIT TODAY. SORENSEN CATH REMOVED DUE TO LEAKING - PATIENT REMAINS INCONTINENT OF URINE. ATTENDS CLEAN/DRY/INTACT AT THIS TIME. Q2 TURNS. WILL CONTINUE TO MONTIOR AND REPORT TO NOC SHIFT RN.
[2019-08-14 04:27] LABS: Hematocrit 27.3 % (33.0-51.0); Hemoglobin 8.6 g/dL (11.5-16.0); Mean Corpuscular HGB 34.1 pg (26.0-34.0); Mean Corpuscular HGB Conc 31.5 g/dL (31.5-36.5); Mean Corpuscular Volume 108 fL (80-100); Mean Platelet Volume 12.5 fL (9.1-12.4); NRBC Auto 1.2 /100 WBC (0.0-0.2); Platelet Count 111 K/mm3 (150-400); RDW Coefficient Variation 17.7 % (11.7-14.2); RDW Standard Deviation 69.1 fL (35.1-46.3); Red Blood Cell Count 2.52 M/mm3 (3.80-5.20); White Blood Cell Count 16.03 K/mm3 (4.00-11.30)
[2019-08-14 04:49] LABS: Alanine Aminotransfer (ALT/SGP 32 U/L (12-78); Albumin, Blood 2.4 g/dL (3.4-5.0); Alk Phos 85 U/L (50-136); Anion Gap 5 mmol/L (6-16); Aspartate Aminotrans (AST/SGOT 19 U/L (12-37); Bilirubin, Total 0.6 mg/dL (0.1-1.0); Blood Urea Nitrogen 32 mg/dL (8-24); Bun/Creatinine Ratio 56.6 (12.0-20.0); CO2, Blood 31 mmol/L (21-32); Calcium, Blood 8.7 mg/dL (8.5-10.1); Chloride, Blood 109 mmol/L (98-108); Creatinine, Blood 0.57 mg/dL (0.40-1.00); Globulin, Blood 2.5 g/dL (2.2-4.0); Glomerular Filtration Rate >60 (60-); Glucose, Blood 133 mg/dL (70-99); Potassium, Blood 3.7 mmol/L (3.5-5.5); Sodium, Blood 145 mmol/L (136-145); Total Protein, Blood 4.9 g/dL (6.4-8.2)
--- NOTE | 2019-08-14 05:20 | NUR ---
END OF SHIFT SUMMARY NO ACUTE CHANGES THIS SHIFT. VSS EXCEPT CONTINUING HTN, MEDS PER EMAR. PT CONTINUES TO HAVE IMPROVING ALERTNESS. PT HAVING FULL APPROPRIATE CONVERSATIONS WITH STAFF. IS EXPRESSING NEEDS WELL. C/O BACK PAIN, PT RECEIVING TYLENOL THROUGH DOBHOFF AND IS BEING REPOSTIONED BY STAFF. KPAD HEAT/ICE IN PLACE WELL PRN BACK MASSAGES. PT HAS STATED SOME RELIEF WITH THESE INTERVENTIONS. PT CONTINENT FOR THE MOST PART THIS SHIFT. IS VERY THANKFUL TO STAFF FOR HELPING HER. PT IS EXCITED ABOUT WORKING WITH PT TO START REGAINING HER STRENGTH. PT TOLERATED BIPAP FOR A FEW HOURS INTERMITTENTLY THIS SHIFT BUT HAS, FOR THE MOST PART, REMAINED ON 2LNC, SPO2 >92%. SACRUM RED, PINK CREAM APPLIED. WILL CONTINUE TO MONITOR UNTIL SHIFT CHANGE.
[2019-08-14 07:01] LABS: BAND PERCENT MAN 2 % (0-8); BASOPHILS PERCENT MAN 0 % (0-2); EOSINOPHILS PERCENT MAN 0 % (0-6); LYMPHOCYTES ABSOLUTE MAN 1.28 K/mm3 (0.84-5.20); LYMPHOCYTES PERCENT MAN 8 % (21-46); METAMYELOCYTE ABSOLUTE MAN 0.16 K/mm3 (0.00-0.00); METAMYELOCYTE PERCENT MAN 1 % (0-0); MONOCYTES ABSOLUTE MAN 1.44 K/mm3 (0.16-1.47); MONOCYTES PERCENT MAN 9 % (4-13); MYELOCYTE ABSOLUTE MAN 0.48 K/mm3 (0.00-0.00); MYELOCYTE PERCENT MAN 3 % (0-0); NEUTROPHILS ABSOLUTE MAN 12.66 K/mm3 (1.96-9.15); SEG NEUTROPHILS PERCENT MAN 77 % (41-73); TOTAL CELLS COUNTED 100
--- NOTE | 2019-08-14 07:55 | NUR ---
ASSUMED CARE AT 0700, REPORT FROM NAV POE. LAYING SUPINE IN LOW FOWLERS ON BED. AWAKE AND ANSWERING QUESTIONS. 02 2L NC. FOLLOWING INSTRUCTIONS, PLAN OF CARE REVIEWED FOR DAY. WILL CONTINUE TO MONITOR.
--- NOTE | 2019-08-14 09:29 | NUR ---
DR. BRIGGS RECIEVED TO REMOVE DOBHOFF. STAFF NURSE AT BEDSIDE. DOBHOFF WAS REMVED. PT TOLERATED WELL.
--- NOTE | 2019-08-14 10:37 | NUR ---
HAS ATTEMPTED TO URINATE ON BED DASILVA SEVERAL TIMES THIS AM WITHOUT RESULTS. NOTIFIED DR. DUARTE. NO NEW ORDERS AT THIS TIME, WILL CONTINUE TO MONITOR.
[2019-08-14 11:26] LABS: Vancomycin, Trough 18.5 ug/mL (5.0-10.0)
--- NOTE | 2019-08-14 13:18 | NUR ---
REFUSED BED BATH TODAY, STATES DOESN'T FELL LIKE IT AND WILL WAIT UNTIL TOMORROW.
--- NOTE | 2019-08-14 13:18 | NUR ---
ROLLED AND PLACED LIDOCAINE PATHCHES PER ORDERS, REDNESS NOTED TO COCCYX, REPOSITIONED TO RIGHT SIDE. WILL CONTINUE TO MONITOR. SKIN TEAR TO RIGHT FOREARM DRY AND INTACT. MULTIPLE EXORIATIONS AND BRUISES IN MULTIPLE STAGES OF HEALING ON ARMS AND CHEST WALL. APPEARS TO SIMILAR STAGES OF HEALING WHEN LAST CARED FOR PT LAST WEEK.
--- NOTE | 2019-08-14 14:42 | NUR ---
Case Conference Note Spoke with Bedside NAV Serrano and discussed case. Pt has improved over the last 24 hours including her mentation. Pt currently Medical Floor Status. No concerns reported at this time. Palliative Care will remain available as needed.
--- NOTE | 2019-08-14 17:18 | NUR ---
REPORT TO ANDRAE ON MEDICAL FLOOR TO ASSUME CARE.
--- NOTE | 2019-08-14 18:09 | NUR ---
PT ARRIVED TO THE MEDICAL FLOOR VIA BED, A/OX3, PLEASANT AND COOPERATIVE, THE PT IS BEDREST AT THIS TIME TURN Q2, THE PT APPEARS TO BE BREATHING EASILY ON O2 @ 2L/MIN VIA NC AT REST, PT WAS ORIENTED TO THE CALL SYSTEM, CALL LIGHT IN REACH
--- NOTE | 2019-08-15 04:29 | NUR ---
SHIFT SUMMARY ASSUMED CARE OF PT AT 1900. PT IS A/OX2, WITH TIMES OF CONFUSION, STATES SHE HAS PAIN IN HER LEGS THAT IS NOT DIAGNOSED. HEART SOUNDS REGULAR, LUNG SOUNDS ON R SIDE DIMINISHED, PT IS ON 1.5L NC, PT STATES SHE ALWAYS SOB. PT HAS BEEN CONTINENT T/O THE NIGHT, USING THE BED DASILVA. NO ACUTE CHANGES DURING THE NIGHT. PT SLEPT MOST OF THE NIGHT. CALL LIGHT IN REACH, BED IN LOWEST POSTION, WILL CONTINUE TO MONITOR UNTIL DAYSHIFT NURSE ARRIVES.
--- NOTE | 2019-08-15 16:07 | NUR ---
PT IS A/OX2, PLEASANT AND COOPERATIVE, CAN BECOME FORGETFUL, THE PT APPEARS TO BE BREATHING AT REST ON O2 AT 2L/MIN, LIDOCAINE PATCHES WERE APPLIED TO THE PTS BACK FOR CHRONIC BACK PAIN, THE PT WORKED WITH THE PHYSICAL THERAPIST TODAY AND WAS ABLE TO STAND, PLAN TO TRANSFER THE PT TO [facility], CALL LIGHT IN REACH WILL CONTINUE TO MONITOR AND ASSESS FOR CHANGES
[2019-08-16 04:33] LABS: Hematocrit 26.4 % (33.0-51.0); Hemoglobin 8.3 g/dL (11.5-16.0); Mean Corpuscular HGB 33.9 pg (26.0-34.0); Mean Corpuscular HGB Conc 31.4 g/dL (31.5-36.5); Mean Corpuscular Volume 108 fL (80-100); Mean Platelet Volume 12.1 fL (9.1-12.4); NRBC ABSOLUTE 0.05 K/mm3 (0.00-0.02); NRBC Auto 0.3 /100 WBC (0.0-0.2); Platelet Count 106 K/mm3 (150-400); RDW Coefficient Variation 17.3 % (11.7-14.2); RDW Standard Deviation 67.7 fL (35.1-46.3); Red Blood Cell Count 2.45 M/mm3 (3.80-5.20); White Blood Cell Count 14.78 K/mm3 (4.00-11.30)
[2019-08-16 04:44] LABS: Anion Gap 1 mmol/L (6-16); Blood Urea Nitrogen 23 mg/dL (8-24); Bun/Creatinine Ratio 41.3 (12.0-20.0); CO2, Blood 36 mmol/L (21-32); Calcium, Blood 8.6 mg/dL (8.5-10.1); Chloride, Blood 100 mmol/L (98-108); Creatinine, Blood 0.56 mg/dL (0.40-1.00); Glomerular Filtration Rate >60 (60-); Glucose, Blood 90 mg/dL (70-99); Potassium, Blood 4.2 mmol/L (3.5-5.5); Sodium, Blood 137 mmol/L (136-145)
[2019-08-16 04:59] LABS: BAND PERCENT MAN 4 % (0-8); BASOPHILS PERCENT MAN 0 % (0-2); EOSINOPHILS PERCENT MAN 0 % (0-6); LYMPHOCYTES ABSOLUTE MAN 1.62 K/mm3 (0.84-5.20); LYMPHOCYTES PERCENT MAN 11 % (21-46); MONOCYTES ABSOLUTE MAN 0.88 K/mm3 (0.16-1.47); MONOCYTES PERCENT MAN 6 % (4-13); MYELOCYTE ABSOLUTE MAN 0.29 K/mm3 (0.00-0.00); MYELOCYTE PERCENT MAN 2 % (0-0); NEUTROPHILS ABSOLUTE MAN 11.97 K/mm3 (1.96-9.15); SEG NEUTROPHILS PERCENT MAN 77 % (41-73); TOTAL CELLS COUNTED 100
--- NOTE | 2019-08-16 05:15 | NUR ---
SHIFT SUMMARY NO ACUTE CHANGES TO REPORT THIS SHIFT. PT HAS RESTED MOST OF THE NIGHT. A/OX3, BUT FORGETFUL AT TIMES. SHE HAS DENIED PAIN. 2L O2 IN PLACE. RESP E/U, EXPIRATORY WHEEZES T/O. BREATHING TREATMENTS ORDERED. ASESSMENT HAS REMAINED UNCHANGED OVERNIGHT. PLAN IS FOR [facility] TODAY.
[2019-08-16] MEDS ORDERED: METO100 PO (13:05)
[2019-08-16] MEDS ORDERED: DOXY100 PO (13:06)
[2019-08-16] MEDS ORDERED: LIDO700A20 TOP (13:09)
[2019-08-16] MEDS ORDERED: HIGH POTENCY P1 EACH PO (13:09)
[2019-08-16] MEDS ORDERED: Deltasone 10 mg10 MG PO (13:11)
--- NOTE | 2019-08-16 15:45 | NUR ---
DISCHARGE SUMMARY PT DISCHARGED TO [facility]. PT LEFT ROOM VIA WHEELCHAIR WITH TRANSPORT AT 1545. REPORT CALLED TO ASHISH AT [facility] AT 1544. ALL QUESTIONS ANSWERED. POWERGLIDE DC'D BY REBEKA MANNING RN PRIOR TO DC.
== END 2019-08-16 15:47 | DRG 871 ==
LOC: ER 11:58 → PCU 17:00 → MEDS 08-14 17:32
PROVIDERS: Family Medicine; Internal Medicine; Nurse Practitioner Acute Care; Physician Assistant; ADMIT Internal Medicine
PROC: 5A09457 Assistance with Respiratory Ventilation, 24-96 Consecutive Hours, Continuous Positive Airway Pressure (ICD-10-PCS; principal; 2019-08-07)
DX: A41.9 Sepsis, unspecified organism (principal); G92 Toxic encephalopathy; J96.21 Acute and chronic respiratory failure with hypoxia; J44.1 Chronic obstructive pulmonary disease with (acute) exacerbation; I50.32 Chronic diastolic (congestive) heart failure; E87.1 Hypo-osmolality and hyponatremia; E87.2 Acidosis; R65.20 Severe sepsis without septic shock; F03.90 Unspecified dementia, unspecified severity, without behavioral disturbance, psychotic disturbance, mood disturbance, and anxiety; I11.0 Hypertensive heart disease with heart failure; R74.0 Nonspecific elevation of levels of transaminase and lactic acid dehydrogenase [LDH]; F41.1 Generalized anxiety disorder; Z74.09 Other reduced mobility; Z99.81 Dependence on supplemental oxygen; G62.9 Polyneuropathy, unspecified; Z87.891 Personal history of nicotine dependence; Z78.1 Physical restraint status
CPT/HCPCS: 36415; 36600; 51701; 51702; 70450; 71045; 74018; 76705; 80048; 80053; 80202; 81001; 82140; 82803; 83605; 83735; 83880; 84100; 84132; 84145; 84295; 84300; 84478; 84484; 85025; 87040; 87086; 87338; 92523; 92526; 92610; 93005; 93010; 94640; 94644; 94660; 94760; 94762; 96361-59; 96365-59; 96375-59; 96376-59; 97110; 97163; 97166; 97530; 99285-25; A9270; C1751; G0480; J0360; J0456; J0610; J0692; J1170; J1630; J1650; J1815; J1885; J1940; J2060; J2310; J2405; J2930; J3370; J3411; J7030; J7050; J7512; J7799; U0002

== ENCOUNTER → 2019-08-28 | Outpatient (CLI) | payer OTHER ==
[~2019-08-28] MED LIST changes: +DOXY100 PO; +Deltasone 10 mg10 MG PO; +HIGH POTENCY P1 EACH PO; +K-Dur10 MEQ PO; +LIDO700A20 TOP; +METO100 PO
[2019-08-28 11:33] LABS: Hematocrit 25.4 % (33.0-51.0); Mean Corpuscular HGB 33.3 pg (26.0-34.0); Mean Corpuscular HGB Conc 31.5 g/dL (31.5-36.5); Mean Corpuscular Volume 106 fL (80-100); Mean Platelet Volume 11.2 fL (9.1-12.4); Platelet Count 269 K/mm3 (150-400); RDW Coefficient Variation 14.8 % (11.7-14.2); RDW Standard Deviation 57.2 fL (35.1-46.3); White Blood Cell Count 10.11 K/mm3 (4.00-11.30)
[2019-08-28 11:55] LABS: Alanine Aminotransfer (ALT/SGP 58 U/L (12-78); Albumin, Blood 2.8 g/dL (3.4-5.0); Albumin/Globulin Ratio 0.8 (0.8-1.8); Alk Phos 111 U/L (50-136); Anion Gap 5 mmol/L (6-16); Aspartate Aminotrans (AST/SGOT 26 U/L (12-37); Bilirubin, Total 0.4 mg/dL (0.1-1.0); Blood Urea Nitrogen 9 mg/dL (8-24); CO2, Blood 33 mmol/L (21-32); Calcium, Blood 8.8 mg/dL (8.5-10.1); Chloride, Blood 100 mmol/L (98-108); Creatinine, Blood 0.56 mg/dL (0.40-1.00); Globulin, Blood 3.4 g/dL (2.2-4.0); Glomerular Filtration Rate >60 (60-); Glucose, Blood 110 mg/dL (70-99); Potassium, Blood 4.1 mmol/L (3.5-5.5); Sodium, Blood 138 mmol/L (136-145); Total Protein, Blood 6.2 g/dL (6.4-8.2)
[2019-08-31 20:23] LABS: Percent Saturation 12.9 % (15.0-50.0)
== END | disposition home or self-care (01) ==
LOC: EDSTATUS 10:41 → LAB RH 11:25
PROVIDERS: Family Medicine
DX: I11.0 Hypertensive heart disease with heart failure (principal); I50.32 Chronic diastolic (congestive) heart failure; E56.9 Vitamin deficiency, unspecified
CPT/HCPCS: 80053; 82607; 82728; 82746; 83540; 83550; 85027